=== PATIENT | female | born 1970 | race African-American/Black ===

== ENCOUNTER 2016-11-15 11:23 | Outpatient (CLI) ==
[2014-06-03 09:24] VITALS: BMI 32.6
[2016-11-15 11:48] LABS: BASOPHILS # (AUTO) 0.1 K/uL (0-0.2); BASOPHILS % (AUTO) 0.4 % (0.0-3.0); EOSINOPHILS # (AUTO) 0.2 K/ul (0.0-0.7); EOSINOPHILS % (AUTO) 1.2 % (0.0-7.0); HEMATOCRIT 51.4 % (37.0-47.0); HEMOGLOBIN 17.8 g/dl (12.0-16.0); IMMATURE GRANULOCYTE % (AUTO) 0.4 % (0.0-5.0); LYMPHOCYTES # (AUTO) 3.3 K/uL (0.60-3.4); LYMPHOCYTES % (AUTO) 23.1 (10.0-50.0); MEAN CORPUSCULAR HEMOGLOBIN 31.5 pg (27.0-31.0); MEAN CORPUSCULAR HGB CONC 34.6 (31.8-35.4); MONOCYTES # (AUTO) 1.1 K/uL (0.4-2.0); MONOCYTES % (AUTO) 7.6 (0-10); NEUTROPHILS # (AUTO) 9.6 K/ul (2.0-6.9); NEUTROPHILS % (AUTO) 67.3; PLATELET COUNT 378 10^3/uL (140-440); RED BLOOD COUNT 5.65 10^6/ul (4.20-5.40); WHITE BLOOD COUNT 14.26 K/ul (4.6-10.2)
[2016-11-15 12:27] LABS: ALBUMIN 3.9 g/dL (3.4-5.0); ALBUMIN/GLOBULIN RATIO 0.93; ANION GAP 13.5; BILIRUBIN,TOTAL 0.53 mg/dL (0.00-1.20); BUN/CREATININE RATIO 8.03; CALCIUM 9.7 mg/dL (8.2-10.2); CHOL/HDL RATIO 3.9 (4.5-5.5); CREATININE 1.12 mg/dL (0.60-1.30); POTASSIUM 4.5 mmol/L (3.5-5.10); TOTAL PROTEIN 8.1 g/dL (6.4-8.2)
--- NOTE | 2016-11-15 13:29 | DEXA ---
EXAM: Bone Densitometry DEXA HISTORY: Postmenopausal COMPARISON: None FINDINGS: DEXA scan of the lumbar spine was performed. Quality of the study is good. Bone mineral density is 1.819 grams per square centimeter. T-score is 05. Z-score is 3.8. DEXA scan right and left hip was performed. Quality of the study is good. Bone mineral density tot al knee is 1.292 grams per square centimeter. T-score is 2.3. Z-score is 0.9. Bone mineral density of the femoral neck mean is 1.279 with a T score of 1.7 and a Z score of 0.8. IMPRESSION: 1. Lumbar spine: Normal bone marrow density. 2. Right and left hip: Normal bone marrow density 3. Right and left femoral neck: Normal bone marrow density 4. 10 year risk for major osteoporotic fracture is 2.1% and for hip fracture is 0.0%. Reference Values according to World Health Organization criteria: T score greater than -1 is normal T score -1 to -2.5 is osteopenia T score less than -2.5 is osteoporosis.
== END 2016-11-15 11:24 | disposition home or self-care (01) ==
LOC: RAD 11:23
PROVIDERS: ATTEND Emergency Medicine
DX: E11.9 Type 2 diabetes mellitus without complications (principal); I10 Essential (primary) hypertension; E78.5 Hyperlipidemia, unspecified; Z78.0 Asymptomatic menopausal state; Z13.820 Encounter for screening for osteoporosis
CPT/HCPCS: 36415; 80053; 80061; 82306; 82607; 83036; 84443; 85025

== ENCOUNTER 2016-11-21 11:22 | Outpatient (CLI) ==
[2014-06-03 09:24] VITALS: BMI 32.6
--- NOTE | 2016-11-22 08:59 | MAMMO ---
EXAM: Digital screening mammogram HISTORY: Screening COMPARISON: 02/09/2015 FINDINGS: Digital MLO and CC views of the right and left breast were performed. There are scatter ed fibroglandular densities. There is no evidence for mass, asymmetry, distortion, or suspicious ca lcifications in either breast. IMPRESSION: 1. No evidence of malignancy in the right or left breast. 2. Annual screening mammogram is recommended in one year. BIRADS category 1, negative examination
== END 2016-11-21 11:23 | disposition home or self-care (01) ==
LOC: RAD 11:22
PROVIDERS: ATTEND Emergency Medicine
DX: Z12.31 Encounter for screening mammogram for malignant neoplasm of breast (principal)

== ENCOUNTER 2017-02-14 11:59 | Outpatient (CLI) ==
[2014-06-03 09:24] VITALS: BMI 32.6
[2017-02-14 12:55] LABS: ALBUMIN 3.8 g/dL (3.4-5.0); ALBUMIN/GLOBULIN RATIO 0.95; ANION GAP 16.1; BILIRUBIN,TOTAL 0.27 mg/dL (0.00-1.20); CALCIUM 9.4 mg/dL (8.2-10.2); CHOL/HDL RATIO 4.1 (4.5-5.5); POTASSIUM 4.1 mmol/L (3.5-5.10); TOTAL PROTEIN 7.8 g/dL (6.4-8.2)
== END 2017-02-14 12:00 | disposition home or self-care (01) ==
LOC: LAB 11:59
PROVIDERS: ATTEND Internal Medicine Endocrinology, Diabetes & Metabolism
DX: E78.5 Hyperlipidemia, unspecified (principal); E11.9 Type 2 diabetes mellitus without complications
CPT/HCPCS: 36415; 80053; 80061; 83036; 84439; 84443

== ENCOUNTER 2017-05-02 11:32 | Outpatient (CLI) ==
[2014-06-03 09:24] VITALS: BMI 32.6
--- NOTE | 2017-05-02 12:29 | DI ---
EXAM: Chest two view, frontal and lateral views. HISTORY: Chest pain. COMPARISON: 06/03/2014. FINDINGS: The heart size is normal. There is no pulmonary vascular congestion. Mild peribronchial thickening is stable from prior studies. Otherwise, the lungs are clear. No pleural effusion or p neumothorax is seen. No acute osseous abnormality identified. ACDF changes noted. Since the prior study, there has been no significant interval change. IMPRESSION: No acute cardiopulmonary process.
--- NOTE | 2017-05-02 12:32 | DI ---
EXAM: Thoracic spine radiographs. HISTORY: Back pain. COMPARISON: None available. TECHNIQUE: Frontal, lateral and swimmer's views. FINDINGS: The normal curvature and alignment are maintained. Vertebral body and intervertebral dis c heights are normal. No fracture or subluxation seen. Mild endplate osteophyte formation noted in the mid thoracic spine. There has been previous ACDF. Adjacent soft tissues are unremarkable. 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
== END 2017-05-02 11:33 | disposition home or self-care (01) ==
LOC: RAD 11:32
PROVIDERS: ATTEND Internal Medicine
DX: M54.9 Dorsalgia, unspecified (principal); R05 Cough; F17.210 Nicotine dependence, cigarettes, uncomplicated

== ENCOUNTER 2017-07-17 10:12 | Outpatient (CLI) ==
[2014-06-03 09:24] VITALS: BMI 32.6
[2017-07-17 10:28] LABS: BASOPHILS # (AUTO) 0.1 K/uL (0-0.2); BASOPHILS % (AUTO) 0.5 % (0.0-3.0); EOSINOPHILS # (AUTO) 0.4 K/ul (0.0-0.7); EOSINOPHILS % (AUTO) 2.7 % (0.0-7.0); HEMATOCRIT 49.3 % (37.0-47.0); HEMOGLOBIN 16.8 g/dl (12.0-16.0); IMMATURE GRANULOCYTE % (AUTO) 0.6 % (0.0-5.0); LYMPHOCYTES # (AUTO) 4.3 K/uL (0.60-3.4); LYMPHOCYTES % (AUTO) 31.1 (10.0-50.0); MEAN CORPUSCULAR HEMOGLOBIN 30.4 pg (27.0-31.0); MEAN CORPUSCULAR HGB CONC 34.1 (31.8-35.4); MEAN CORPUSCULAR VOLUME 89.3 fl (81.0-99.0); MONOCYTES # (AUTO) 1.3 K/uL (0.4-2.0); MONOCYTES % (AUTO) 9.6 (0-10); NEUTROPHILS # (AUTO) 7.7 K/ul (2.0-6.9); NEUTROPHILS % (AUTO) 55.5; PLATELET COUNT 400 10^3/uL (140-440); RED BLOOD COUNT 5.52 10^6/ul (4.20-5.40); WHITE BLOOD COUNT 13.89 K/ul (4.6-10.2)
[2017-07-17 11:04] LABS: ALBUMIN 3.8 g/dL (3.4-5.0); ANION GAP 14.1; BILIRUBIN,TOTAL 0.34 mg/dL (0.00-1.20); BUN/CREATININE RATIO 6.14; CHOL/HDL RATIO 3.2 (4.5-5.5); CREATININE 1.14 mg/dL (0.60-1.30); POTASSIUM 4.1 mmol/L (3.5-5.10); TOTAL PROTEIN 7.6 g/dL (6.4-8.2)
== END 2017-07-17 10:13 | disposition home or self-care (01) ==
LOC: LAB 10:12
PROVIDERS: ATTEND Internal Medicine
DX: E78.5 Hyperlipidemia, unspecified (principal); E11.9 Type 2 diabetes mellitus without complications; I10 Essential (primary) hypertension; J44.9 Chronic obstructive pulmonary disease, unspecified
CPT/HCPCS: 36415; 80053; 80061; 83036; 84443; 85025

== ENCOUNTER 2017-11-20 10:21 | Outpatient (CLI) ==
[2014-06-03 09:24] VITALS: BMI 32.6
== END 2017-11-20 10:22 | disposition home or self-care (01) ==
LOC: LAB 10:21
PROVIDERS: ATTEND Internal Medicine
DX: E78.5 Hyperlipidemia, unspecified (principal); E11.9 Type 2 diabetes mellitus without complications; E03.9 Hypothyroidism, unspecified; D75.1 Secondary polycythemia
CPT/HCPCS: 36415; 80053; 80061; 83036; 84439; 84443; 85025

== ENCOUNTER 2018-01-22 09:00 | Outpatient (CLI) ==
[2014-06-03 09:24] VITALS: BMI 32.6
== END 2018-01-22 09:01 | disposition home or self-care (01) ==
LOC: LAB 09:00
PROVIDERS: ATTEND Internal Medicine
DX: E03.9 Hypothyroidism, unspecified (principal)
CPT/HCPCS: 36415; 84439; 84443

== ENCOUNTER 2018-03-26 11:26 | Outpatient (CLI) ==
[2014-06-03 09:24] VITALS: BMI 32.6
== END 2018-03-26 11:27 | disposition home or self-care (01) ==
LOC: LAB 11:26
PROVIDERS: ATTEND Internal Medicine
DX: E03.9 Hypothyroidism, unspecified (principal); E78.5 Hyperlipidemia, unspecified; E11.9 Type 2 diabetes mellitus without complications
CPT/HCPCS: 36415; 80053; 80061; 83036; 84439; 84443; 85025

== ENCOUNTER 2018-04-02 09:18 | Outpatient (CLI) ==
[2014-06-03 09:24] VITALS: BMI 32.6
--- NOTE | 2018-04-05 09:02 | MAMMO ---
EXAM: Bilateral digital screening mammogram (2-D and 3-D) History: Screening Comparison: Bilateral mammogram 11/21/2016 Findings: MLO and CC views of bilateral breasts demonstrate scattered fibroglandular breast pattern. CAD was reviewed by the radiologist. Tomosynthesis was performed. There are no dominant masses, no suspicious microcalcifications and no architectural distortions. Impression: Stable negative mammogram. Recommend followup routine screening mammography in 1 year. BIRADS 1
== END 2018-04-02 09:19 | disposition home or self-care (01) ==
LOC: RAD 09:18
PROVIDERS: ATTEND Internal Medicine
DX: Z12.31 Encounter for screening mammogram for malignant neoplasm of breast (principal)
CPT/HCPCS: 77067

== ENCOUNTER 2018-07-23 10:23 | Outpatient (CLI) ==
[2014-06-03 09:24] VITALS: BMI 32.6
[2018-07-23 11:15] VITALS: BP 162/82; TEMP 98.5
[2018-07-23] MEDS ORDERED: LIDOCAINE HCL 1% SDV IM STA (11:16)
[2018-07-23] MEDS ORDERED: DECADRON 4 MG/ML SDV IM STA (11:16)
[2018-07-23] MEDS ORDERED: ROCEPHIN IM STA (11:16)
== END 2018-07-23 10:24 | disposition home or self-care (01) ==
LOC: OPMED 10:23
PROVIDERS: ATTEND Internal Medicine
DX: J01.90 Acute sinusitis, unspecified (principal); E78.5 Hyperlipidemia, unspecified; E11.9 Type 2 diabetes mellitus without complications; E03.9 Hypothyroidism, unspecified
CPT/HCPCS: 36415; 80053; 80061; 83036; 84439; 84443; 85025; 96372

== ENCOUNTER 2018-07-24 11:10 | Outpatient (CLI) ==
[2014-06-03 09:24] VITALS: BMI 32.6
[2018-07-24 11:22] VITALS: BP 147/75; TEMP 98.1
[2018-07-24] MEDS: ROCEPHIN IM STA (11:43)
[2018-07-24] MEDS: LIDOCAINE HCL 1% SDV IM STA (11:44)
[2018-07-24] MEDS: DECADRON 4 MG/ML SDV IM STA (11:45)
== END 2018-07-24 11:11 | disposition home or self-care (01) ==
LOC: OPMED 11:10
PROVIDERS: ATTEND Internal Medicine
DX: J01.90 Acute sinusitis, unspecified (principal); E11.9 Type 2 diabetes mellitus without complications; E78.5 Hyperlipidemia, unspecified; E03.9 Hypothyroidism, unspecified; I10 Essential (primary) hypertension
CPT/HCPCS: 96372

== ENCOUNTER 2018-11-20 10:00 | Outpatient (CLI) ==
[2014-06-03 09:24] VITALS: BMI 32.6
== END 2018-11-20 10:01 | disposition home or self-care (01) ==
LOC: LAB 10:00
PROVIDERS: ATTEND Internal Medicine
DX: E78.5 Hyperlipidemia, unspecified (principal); I10 Essential (primary) hypertension; E11.9 Type 2 diabetes mellitus without complications
CPT/HCPCS: 36415; 80053; 80061; 83036; 84439; 84443; 85025

== ENCOUNTER 2019-01-15 09:06 | Outpatient (CLI) ==
[2014-06-03 09:24] VITALS: BMI 32.6
--- NOTE | 2019-01-15 10:35 | US ---
EXAM: Thyroid ultrasound HISTORY: Goiter COMPARISON: None TECHNIQUE: Thyroid ultrasound was performed FINDINGS: Significantly limited examination due to extensive shadowing artifact that may be due to c alcifications. Thyroid is very difficult to visualize secondary to shadowing artifact likely from ca lcifications. Right thyroid measures 2.0 x 1.8 x 5.2 cm. Left thyroid measures 2.1 x 1.3 x 4.6 cm. Thyroid isthmus measures 0.5 cm. 1.2 x 1.0 x 1.4 cm hypoechoic nodule right superior thyroid. Ther e may be a 1.9 cm calcified nodule right mid thyroid. Extensive calcification shadowing artifact in t he bilateral thyroid and additional calcified nodules cannot be excluded. IMPRESSION: 1. Significantly limited examination due to extensive shadowing artifact that may be due to calcific ations. 2. There may be a 1.9 cm calcified nodule right mid thyroid. Recommend fine-needle aspiration. 3. Extensive calcification shadowing artifact in the bilateral thyroid and additional calcified nodu les cannot be excluded. 4. 1.4 cm nodule right superior thyroid. 5. Recommend follow-up ultrasound 6 months.
== END 2019-01-15 09:07 | disposition home or self-care (01) ==
LOC: RAD 09:06
PROVIDERS: ATTEND Internal Medicine
DX: E04.9 Nontoxic goiter, unspecified (principal); E03.9 Hypothyroidism, unspecified
CPT/HCPCS: 36415; 84439; 84443

== ENCOUNTER 2019-01-21 09:04 | Outpatient (CLI) ==
[2014-06-03 09:24] VITALS: BMI 32.6
--- NOTE | 2019-01-21 11:00 | CT ---
EXAM: CT sinuses with and without contrast HISTORY: Facial swelling, sinusitis COMPARISON: None TECHNIQUE: CT sinuses performed with and without intravenous contrast. Coronal and sagittal reforma tted images obtained. FINDINGS: Bilateral mastoid effusions, right greater than left. Temporal mandibular joints normally aligned. No fracture. Globes, retrobulbar structures unremarkable. The adenoids mildly prominent. Mucosal thickening left maxillary sinus. Right maxillary sinus clear. Sphenoid and sinuses clear. Frontal sinuses clear. Minimal mucosal thickening ethmoid air cells. No air-fluid levels paranasa l sinuses. Ostiomeatal units patent. Mild leftward deviation nasal septum. IMPRESSION: 1. Very mild sinusitis. No air-fluid levels. 2. Mildly prominent adenoids.
== END 2019-01-21 09:05 | disposition home or self-care (01) ==
LOC: RAD 09:04
PROVIDERS: ATTEND Internal Medicine
DX: R22.0 Localized swelling, mass and lump, head (principal); J32.9 Chronic sinusitis, unspecified
CPT/HCPCS: 36415; 82565

== ENCOUNTER 2019-02-23 14:54 | Emergency (ER) ==
[2019-02-23 15:02] VITALS: BP 182/85; TEMP 99.6; BMI 28.6
--- NOTE | 2019-02-23 15:22 | ED.PDOC ---
General ED Provider: Dr. MARSHA VELAZQUEZ Chief Complaint: Respiratory Complaint Stated Complaint: sinus pain chronic Time Seen by Physician: 15:00 Mode of Arrival: Walk-In Information Source: Patient Exam Limitations: No limitations Primary Care Provider: RENALDO TREJO Nursing and Triage Documentation Reviewed and Agree: Yes Does patient meet sepsis criteria?: No System Inflammatory Response Syndrome: Not Applicable Sepsis Protocol: For patient's 13 years and over: Temp is 96.8 and below OR 101 and greater Pulse >90 BPM Resp >20/minute Acutely Altered Mental Status Are patient's symptoms suggestive of a new infection, such as: -Pneumonia -Skin, Soft Tissue -Endocarditis -UTI -Bone, Joint Infection -Implantable Device -Acute Abdominal Infection -Wound Infection -Meningitis -Blood Stream Catheter Infection -Unknown EENT Complaint Exam - Nasal Complaint/Exam Onset/Duration: chronic Symptoms Are: Still present Initial Severity: Mild Current Severity: Mild Aggravating: Reports: None Alleviating: Reports: None Associated Signs and Symptoms: Reports: Nasal congestion Related History: Reports: Similar episode Nasal Surgical History: Reports: None Differential Diagnoses: Sinusitis Review of Systems - Review Of Systems Constitutional: Reports: No symptoms Eyes: Reports: No symptoms Ears, Nose, Mouth, Throat: Reports: Nose pain (sinus pain) Respiratory: Reports: No symptoms Cardiac: Reports: No symptoms GI: Reports: No symptoms : Reports: No symptoms Musculoskeletal: Reports: No symptoms Skin: Reports: No symptoms Neurological: Reports: No symptoms Endocrine: Reports: No symptoms Hematologic/Lymphatic: Reports: No symptoms All Other Systems: Reviewed and Negative Past Medical History - Past Medical History Previously Healthy: Yes Endocrine: Reports: None Cardiovascular: Reports: None Respiratory: Reports: None Hematological: Reports: None Gastrointestinal: Reports: None Genitourinary: Reports: None Neuro/Psych: Reports: None Musculoskeletal: Reports: None Cancer: Reports: None Last Menstrual Period: Last week - Surgical History General Surgical History: Reports: None - Family History Family History: Reports: None - Social History Smoking Status: Current every day smoker, Light tobacco smoker Hx Substance Use: No Alcohol Screening: None - Immunizations Tetanus Shot up to Date: No Physical Exam - Physical Exam Appearance: Well-appearing, No pain distress, Well-nourished Eyes: BORIS, EOMI, Conjunctiva clear ENT: Dry mucosa (sinus pain maxillary sinuses ) Respiratory: Airway patent, Breath sounds clear, Breath sounds equal, Respirations nonlabored Cardiovascular: RRR, Pulses normal, No rub, No murmur GI/: Soft, Nontender, No masses, Bowel sounds normal, No Organomegaly Musculoskeletal: Normal strength, ROM intact, No edema, No calf tenderness Skin: Warm, Dry Neurological: Sensation intact, Motor intact, Reflexes intact, Cranial nerves intact, Alert, Oriented Psychiatric: Affect appropriate, Mood appropriate Critical Care Note - Critical Care Note Total Time (mins): 0 Course - Course Vital Signs: Temp Pulse Resp BP Pulse Ox 02/23/19 14:55 99.6 F 96 H 20 182/85 H 94 L Departure - Departure Time of Disposition: 15:22 Disposition: HOME SELF-CARE Discharge Problem: Sinusitis Qualifiers: Sinusitis location: unspecified location Chronicity: chronic Qualified Code(s) : J32.9 - Chronic sinusitis, unspecified Instructions: Sinusitis (ED) Condition: Good Pt referred to PMD for follow-up: Yes IPMP verified?: No Additional Instructions: Please call your Family Physician as soon as possible to schedule a follow-up appointment. Allergies/Adverse Reactions: Allergies cephalexin monohydrate [From [employer]] Adverse Reaction (Verified 02/23/19 15:03) Home Medications: Ambulatory Orders Cyclobenzaprine HCl [Flexeril] 10 mg PO DIRECTED PRN 06/03/14 Felodipine [Plendil] 10 mg PO DAILY 06/03/14 Fenofibrate 54 mg PO DAILY 06/03/14 Glipizide [Glucotrol] 10 mg PO BID 06/03/14 Linagliptin [Tradjenta] 5 mg PO DAILY 06/03/14 Lisinopril 20 mg PO DAILY 06/03/14 Metformin HCl 500 mg PO TID 06/03/14 Simvastatin 60 mg PO DAILY 06/03/14 Omeprazole Magnesium [Prilosec Otc] 20 mg PO DAILY 09/29/14 Levothyroxine Sodium [Synthroid] 300 mcg PO DAILY LAB 02/23/19
== END 2019-02-23 15:40 | disposition home or self-care (01) ==
LOC: ED 14:54
DX: J32.9 Chronic sinusitis, unspecified (principal); F17.210 Nicotine dependence, cigarettes, uncomplicated
CPT/HCPCS: 99282

== ENCOUNTER 2019-03-11 11:55 | Outpatient (CLI) | END 2019-03-11 11:56 | disposition home or self-care (01) | LOC: LAB 11:55 | PROVIDERS: ATTEND Internal Medicine | DX: E03.9 Hypothyroidism, unspecified (principal); E11.9 Type 2 diabetes mellitus without complications; J44.9 Chronic obstructive pulmonary disease, unspecified | CPT/HCPCS: 36415; 80053; 80061; 83036; 84439; 84443; 85025 ==

== ENCOUNTER 2019-03-27 06:34 | Observation (INO) ==
[2019-03-27] MEDS ORDERED: DUONEB NEB STA (06:42)
--- NOTE | 2019-03-27 06:42 | ED.PDOC ---
General ED Provider: Dr. SIN HAMILTON Chief Complaint: Shortness of Air Time Seen by Physician: 06:30 Mode of Arrival: Ambulance Information Source: Patient Primary Care Provider: RENALDO TREJO Nursing and Triage Documentation Reviewed and Agree: Yes Does patient meet sepsis criteria?: Yes If yes, has appropriate treatment been initiated?: No System Inflammatory Response Syndrome: Resp >20/Minute Sepsis Protocol: For patient's 13 years and over: Temp is 96.8 and below OR 101 and greater Pulse >90 BPM Resp >20/minute Acutely Altered Mental Status Are patient's symptoms suggestive of a new infection, such as: -Pneumonia -Skin, Soft Tissue -Endocarditis -UTI -Bone, Joint Infection -Implantable Device -Acute Abdominal Infection -Wound Infection -Meningitis -Blood Stream Catheter Infection -Unknown Review of Systems - Review Of Systems Constitutional: Reports: No symptoms Eyes: Reports: No symptoms Ears, Nose, Mouth, Throat: Reports: No symptoms Respiratory: Reports: Cough (productive of ansari, white and brown sputum.), Short of air, Wheezing Cardiac: Reports: Chest pain GI: Reports: No symptoms : Reports: No symptoms Musculoskeletal: Reports: No symptoms Skin: Reports: No symptoms Neurological: Reports: No symptoms Endocrine: Reports: No symptoms Hematologic/Lymphatic: Reports: No symptoms All Other Systems: Reviewed and Negative Past Medical History - Past Medical History Previously Healthy: Yes Endocrine: Reports: Hypothyroid Cardiovascular: Reports: Hypertension Respiratory: Reports: COPD, Bronchitis Hematological: Reports: None Gastrointestinal: Reports: GERD Genitourinary: Reports: None Neuro/Psych: Reports: None Musculoskeletal: Reports: Arthritis Cancer: Reports: None Last Menstrual Period: couple weeks - Surgical History General Surgical History: Reports: (x 2 ) - Family History Family History: Reports: None - Social History Smoking Status: Current every day smoker, Light tobacco smoker Hx Substance Use: No Alcohol Screening: None - Immunizations Tetanus Shot up to Date: No Critical Care Note - Critical Care Note Total Time (mins): 30 Course - Course Vital Signs: Temp Pulse Resp BP Pulse Ox 03/27/19 06:34 97.6 F 106 H 30 H 96/57 L 93 L Departure - Departure Allergies/Adverse Reactions: Allergies cephalexin monohydrate [From [employer]] Adverse Reaction (Verified 02/23/19 15:03) Home Medications: Ambulatory Orders Cyclobenzaprine HCl [Flexeril] 10 mg PO DIRECTED PRN 06/03/14 Felodipine [Plendil] 10 mg PO DAILY 06/03/14 Fenofibrate 54 mg PO DAILY 06/03/14 Glipizide [Glucotrol] 10 mg PO BID 06/03/14 Linagliptin [Tradjenta] 5 mg PO DAILY 06/03/14 Lisinopril 20 mg PO DAILY 06/03/14 Metformin HCl 500 mg PO TID 06/03/14 Simvastatin 60 mg PO DAILY 06/03/14 Omeprazole Magnesium [Prilosec Otc] 20 mg PO DAILY 09/29/14 Amoxicillin 500 mg PO Q8HR #30 tablet 02/23/19 Levothyroxine Sodium [Synthroid] 300 mcg PO DAILY LAB 02/23/19 Prednisone 10 mg PO DAILYWM #7 tablet 02/23/19
[2019-03-27] MEDS ORDERED: ALBUTEROL 0.083% NEB NEB STA (07:30)
[2019-03-27] MEDS ORDERED: SODIUM CHLORIDE 500 ML IV STA (07:35)
--- NOTE | 2019-03-27 07:40 | ED.PDOC ---
General ED Provider: Dr. CHARISSA CONNORS Chief Complaint: Shortness of Air Stated Complaint: Short of breath; Sinus infection. States has been treated for sinus infection with 2 different antibiotics (Augumentin and Zithromax) and oral steroids on 2 different occasions. Not getting better. 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 Has been feeling very poorly, experiencing dyspnea, dizziness, abdominal bloating. Resp mildly labored Time Seen by Physician: 07:15 Mode of Arrival: Wheelchair Information Source: Patient Exam Limitations: No limitations Primary Care Provider: RENALDO TREJO Nursing and Triage Documentation Reviewed and Agree: Yes Does patient meet sepsis criteria?: No System Inflammatory Response Syndrome: Not Applicable Sepsis Protocol: For patient's 13 years and over: Temp is 96.8 and below OR 101 and greater Pulse >90 BPM Resp >20/minute Acutely Altered Mental Status Are patient's symptoms suggestive of a new infection, such as: -Pneumonia -Skin, Soft Tissue -Endocarditis -UTI -Bone, Joint Infection -Implantable Device -Acute Abdominal Infection -Wound Infection -Meningitis -Blood Stream Catheter Infection -Unknown Respiratory Complaint Exam - Respiratory Complaint/Exam Symptoms Are: Still present, Worse Timing: Intermittent Initial Severity: Mild Current Severity: Moderate Location: Nose, Throat, Chest Character: Reports: Non-productive cough, Bronchospastic cough Aggravating: Reports: Passive smoke exposure Alleviating: Reports: None Associated Signs and Symptoms: Reports: Dyspnea, Nasal congestion, Hoarseness, Decreased oral intake, Increased thirst Related History: Denies: Similar episode History of Healthcare-Acquired Pneumonia: No Related Surgical History: Reports: None Pulmonary Embolism Risk Factors: None Cardiac Risk Factors: Reports: None Pseudomonas Risk Factors: Reports: None Tuberculosis Risk Factors: Reports: None Status Asthmaticus Risk Factors: Reports: None Home Oxygen Use: No Recent Echo/LV Function: No Current Antibiotic Use: Yes Current Asthma Medication Use: No Respiratory Distress: Mild Inadequate Respiratory Effort: No Dysphagia Present: No Stridor Present: No JVD Present: No Retractions: Not Present Diminished Breath Sounds: Yes Prolonged Respiration: Inspiratory phase Sinus Tenderness: None Grunting Respirations: No Kussmaul Respirations: No Differential Diagnoses: Pneumonia, URI Review of Systems - Review Of Systems Constitutional: Reports: No symptoms Eyes: Reports: No symptoms Ears, Nose, Mouth, Throat: Reports: No symptoms Respiratory: Reports: Cough, Short of air Cardiac: Reports: No symptoms GI: Reports: No symptoms : Reports: No symptoms Musculoskeletal: Reports: No symptoms Skin: Reports: No symptoms Neurological: Reports: No symptoms Endocrine: Reports: No symptoms Hematologic/Lymphatic: Reports: No symptoms All Other Systems: Reviewed and Negative Past Medical History - Past Medical History Previously Healthy: Yes Endocrine: Reports: None Cardiovascular: Reports: None Respiratory: Reports: None Hematological: Reports: None Gastrointestinal: Reports: None Genitourinary: Reports: None Neuro/Psych: Reports: None Musculoskeletal: Reports: None Cancer: Reports: None Last Menstrual Period: couple weeks - Surgical History General Surgical History: Reports: None - Family History Family History: Reports: None - Social History Smoking Status: Current every day smoker, Light tobacco smoker Hx Substance Use: No Alcohol Screening: None - Immunizations Tetanus Shot up to Date: No Physical Exam - Physical Exam Appearance: Ill-appearing, Obese Ill-appearing: Moderate Pain Distress: Mild Eyes: BORIS, EOMI, Conjunctiva clear ENT: Erythema Neck: Supple Respiratory: Airway patent, Breath sounds diminished, Wheezes Cardiovascular: RRR, Pulses normal, No rub, No murmur GI/: Soft, Nontender, No masses, Bowel sounds normal, No Organomegaly Musculoskeletal: Normal strength, ROM intact, No edema, No calf tenderness Skin: Warm, Dry, Normal color Neurological: Sensation intact, Motor intact, Reflexes intact, Cranial nerves intact, Alert, Oriented Psychiatric: Affect appropriate, Mood appropriate Physician Notification - Case Discussed Physician Notified: Dr Trejo Time of Notification: 12:10 (Concurs with admit/observation) Admit To: Observation Critical Care Note - Critical Care Note Total Time (mins): 60 Course - Course Hematology/Chemistry: 03/27/19 07:55 03/27/19 07:55 Orders, Labs, Meds: Lab Review 03/27/19 03/27/19 03/27/19 07:45 07:45 07:55 WBC RBC Hgb Hct MCV MCH MCHC RDW Coeff of Thee Plt Count Immature Gran % (Auto) Neut % (Auto) Lymph % (Auto) Imperial % (Auto) Eos % (Auto) Baso % (Auto) Immature Gran # (Auto) Neut # (Auto) Lymph # (Auto) Imperial # (Auto) Eos # (Auto) Baso # (Auto) ESR D-Dimer (Manual) Puncture Site R brach O2 Saturation 92.0 L ABG pH 7.350 ABG pCO2 36.1 ABG pO2 67.0 L ABG HCO3 19.9 L ABG Total CO2 21 L ABG Base Excess -6 L Beck Test + O2 Delivery Device Oxygen Liter Flow FiO2 % 21.0 Sodium Potassium Chloride Carbon Dioxide Anion Gap BUN Creatinine Estimated GFR (MDRD) BUN/Creatinine Ratio Glucose Lactic Acid Calcium Total Bilirubin AST ALT Alkaline Phosphatase Total Protein Albumin Globulin Albumin/Globulin Ratio Procalcitonin Urine Color Yellow Urine Clarity Clear Urine pH 5.0 Ur Specific [place] <=1.005 Urine Protein 1+ Urine Glucose (UA) 2+ Urine Ketones Negative Urine Blood 1+ Urine Nitrite Negative Urine Bilirubin Negative Urine Urobilinogen 0.2 Ur Leukocyte Esterase Trace Urine Microscopic RBC 0-2 Urine Microscopic WBC 0-2 Ur Squamous Epith Cells 5-10 Urine Opiates Screen Negative Ur Oxycodone Screen Negative Urine Methadone Screen Negative Ur Propoxyphene Screen Negative Ur Barbiturates Screen Negative U Tricyclic Antidepress Negative Ur Phencyclidine Scrn Negative Ur Amphetamine Screen Negative U Methamphetamines Scrn Negative U Benzodiazepines Scrn Negative Urine Cocaine Screen Negative U Cannabinoids Screen Negative 03/27/19 03/27/19 03/27/19 07:55 07:55 07:55 WBC 22.07 H RBC 5.48 H Hgb 17.5 H Hct 51.5 H MCV 94.0 MCH 31.9 H MCHC 34.0 RDW Coeff of Thee 12.7 Plt Count 322 Immature Gran % (Auto) 1.1 Neut % (Auto) 86.0 Lymph % (Auto) 9.0 L [place] % (Auto) 3.0 Eos % (Auto) 0.5 Baso % (Auto) 0.4 Immature Gran # (Auto) 0.3 Neut # (Auto) 19.0 H Lymph # (Auto) 2.0 Imperial # (Auto) 0.7 Eos # (Auto) 0.1 Baso # (Auto) 0.1 ESR 5 D-Dimer (Manual) Puncture Site O2 Saturation ABG pH ABG pCO2 ABG pO2 ABG HCO3 ABG Total CO2 ABG Base Excess Beck Test O2 Delivery Device Oxygen Liter Flow FiO2 % Sodium 134.6 Potassium 4.28 Chloride 100.8 Carbon Dioxide 16.6 L Anion Gap 21.48 BUN 8.3 Creatinine 1.24 Estimated GFR (MDRD) 56.00 BUN/Creatinine Ratio 6.69 Glucose 465.7 H Lactic Acid Calcium 9.52 Total Bilirubin 0.41 AST 39.0 H ALT 47.4 H Alkaline Phosphatase 144.5 H Total Protein 7.43 Albumin 4.19 Globulin 3.24 Albumin/Globulin Ratio 1.29 Procalcitonin Urine Color Urine Clarity Urine pH Ur Specific [place] Urine Protein Urine Glucose (UA) Urine Ketones Urine Blood Urine Nitrite Urine Bilirubin Urine Urobilinogen Ur Leukocyte Esterase Urine Microscopic RBC Urine Microscopic WBC Ur Squamous Epith Cells Urine Opiates Screen Ur Oxycodone Screen Urine Methadone Screen Ur Propoxyphene Screen Ur Barbiturates Screen U Tricyclic Antidepress Ur Phencyclidine Scrn Ur Amphetamine Screen U Methamphetamines Scrn U Benzodiazepines Scrn Urine Cocaine Screen U Cannabinoids Screen 03/27/19 03/27/19 03/27/19 07:55 07:55 09:10 WBC RBC Hgb Hct MCV MCH MCHC RDW Coeff of Thee Plt Count Immature Gran % (Auto) Neut % (Auto) Lymph % (Auto) [place] % (Auto) Eos % (Auto) Baso % (Auto) Immature Gran # (Auto) Neut # (Auto) Lymph # (Auto) Imperial # (Auto) Eos # (Auto) Baso # (Auto) ESR D-Dimer (Manual) 464.02 Puncture Site O2 Saturation ABG pH ABG pCO2 ABG pO2 ABG HCO3 ABG Total CO2 ABG Base Excess Beck Test O2 Delivery Device Oxygen Liter Flow FiO2 % Sodium Potassium Chloride Carbon Dioxide Anion Gap BUN Creatinine Estimated GFR (MDRD) BUN/Creatinine Ratio Glucose Lactic Acid 3.10 H Calcium Total Bilirubin AST ALT Alkaline Phosphatase Total Protein Albumin Globulin Albumin/Globulin Ratio Procalcitonin < 0.05 Urine Color Urine Clarity Urine pH Ur Specific [place] Urine Protein Urine Glucose (UA) Urine Ketones Urine Blood Urine Nitrite Urine Bilirubin Urine Urobilinogen Ur Leukocyte Esterase Urine Microscopic RBC Urine Microscopic WBC Ur Squamous Epith Cells Urine Opiates Screen Ur Oxycodone Screen Urine Methadone Screen Ur Propoxyphene Screen Ur Barbiturates Screen U Tricyclic Antidepress Ur Phencyclidine Scrn Ur Amphetamine Screen U Methamphetamines Scrn U Benzodiazepines Scrn Urine Cocaine Screen U Cannabinoids Screen 03/27/19 10:20 WBC RBC Hgb Hct MCV MCH MCHC RDW Coeff of Thee Plt Count Immature Gran % (Auto) Neut % (Auto) Lymph % (Auto) Imperial % (Auto) Eos % (Auto) Baso % (Auto) Immature Gran # (Auto) Neut # (Auto) Lymph # (Auto) Imperial # (Auto) Eos # (Auto) Baso # (Auto) ESR D-Dimer (Manual) Puncture Site R rad O2 Saturation 98.0 ABG pH 7.335 L ABG pCO2 37.2 ABG pO2 113.0 H ABG HCO3 19.8 L ABG Total CO2 21 L ABG Base Excess -6 L Beck Test + O2 Delivery Device Nc Oxygen Liter Flow 2.00 FiO2 % Sodium Potassium Chloride Carbon Dioxide Anion Gap BUN Creatinine Estimated GFR (MDRD) BUN/Creatinine Ratio Glucose Lactic Acid Calcium Total Bilirubin AST ALT Alkaline Phosphatase Total Protein Albumin Globulin Albumin/Globulin Ratio Procalcitonin Urine Color Urine Clarity Urine pH Ur Specific [place] Urine Protein Urine Glucose (UA) Urine Ketones Urine Blood Urine Nitrite Urine Bilirubin Urine Urobilinogen Ur Leukocyte Esterase Urine Microscopic RBC Urine Microscopic WBC Ur Squamous Epith Cells Urine Opiates Screen Ur Oxycodone Screen Urine Methadone Screen Ur Propoxyphene Screen Ur Barbiturates Screen U Tricyclic Antidepress Ur Phencyclidine Scrn Ur Amphetamine Screen U Methamphetamines Scrn U Benzodiazepines Scrn Urine Cocaine Screen U Cannabinoids Screen Orders Category Date Time Status ABG DRAW REQUEST Stat CARDIO 03/27/19 07:29 Completed ABG DRAW REQUEST Timed CARDIO 03/27/19 09:15 Completed EKG-(ED ONLY) Stat CARDIO 03/27/19 07:27 Completed NEBULIZER TREATMENT Stat CARDIO 03/27/19 07:29 Completed NEBULIZER TREATMENT Stat CARDIO 03/27/19 07:30 Completed OXYGEN Routine CARDIO 03/27/19 08:11 Ordered BLOOD GLUCOSE MONITORING Q1HR CARE 03/27/19 09:09 Active BLOOD GLUCOSE MONITORING Q1HR CARE 03/27/19 09:33 Active NPO REMINDER: IMAGING ONCE CARE 03/27/19 09:04 Active ED IV/MEDIPORT/POWERPORT .ONCE EMERGENCY 03/27/19 06:42 Inactive IV [ED IV/MEDIPORT/POWERPORT] .ONCE EMERGENCY 03/27/19 07:34 Active ABG Stat LAB 03/27/19 07:55 Completed ABG Timed LAB 03/27/19 10:20 Completed BLOOD CULTURE (ED ONLY) Stat LAB 03/27/19 07:55 Received CBC W/ AUTO DIFF Stat LAB 03/27/19 07:55 Completed CMP [COMPREHENSIVE METABOLIC PANEL] Stat LAB 03/27/19 07:55 Completed D-DIMER Stat LAB 03/27/19 09:10 Completed ESR Stat LAB 03/27/19 07:55 Completed LACTIC ACID Stat LAB 03/27/19 07:55 Completed PROCALCITONIN Stat LAB 03/27/19 07:55 Completed UA [URINALYSIS C & S IF INDICATED] Stat LAB 03/27/19 07:45 Completed URINE DRUG SCREEN (RAPID FOR ED) [DRUG SCREEN, URINE, LAB 03/27/19 07:45 Completed RAPID] Stat 0.9 % Sodium Chloride [Saline Flush] MEDS 03/27/19 07:35 Active 1 syr IVF PRN PRN Albuterol Sulfate 0.083% Neb [Albuterol 0.083% Neb] MEDS 03/27/19 07:30 Discontinued 1 vial NEB ONCE STA Insulin Lispro [Humalog] MEDS 03/27/19 09:06 Discontinued 15 unit SUBCUT ONCE STA Insulin Regular, Human [Humulin R] MEDS 03/27/19 09:33 Discontinued 15 unit SUBCUT ONCE STA Sodium Chloride 0.9% [Sodium Chloride] 1,000 ml MEDS 03/27/19 08:53 Discontinued IV BOLUS Sodium Chloride 0.9% [Sodium Chloride] 500 ml MEDS 03/27/19 07:35 Discontinued IV BOLUS CHEST, 2 VIEWS PA & LAT Stat RADS 03/27/19 07:[address] ABDOMEN/PELVIS W CONTRAST Stat RADS 03/27/19 09:[address] CHEST PE PROTOCOL Stat RADS 03/27/19 09:[address] SINUSES W/O CONTRAST Stat RADS 03/27/19 08:11 Completed Medications Generic Name Dose Route Start Last Admin Trade Name Freq PRN Reason Stop Dose Admin Sodium Chloride 1 syr 03/27/19 07:35 03/27/19 08:16 Saline Flush IVF 1 syr PRN PRN Administration To flush IV Discontinued Medications Generic Name Dose Route Start Last Admin Trade Name Freq PRN Reason Stop Dose Admin Albuterol Sulfate 1 vial 03/27/19 07:30 03/27/19 07:56 Albuterol 0.083% Neb NEB 03/27/19 07:31 1 vial ONCE STA Administration Sodium Chloride 500 mls @ 500 mls/hr 03/27/19 07:35 03/27/19 08:11 Sodium Chloride IV 03/27/19 08:34 500 mls/hr BOLUS STA Administration Sodium Chloride 1,000 mls @ 1,000 mls/hr 03/27/19 08:53 03/27/19 09:28 Sodium Chloride IV 03/27/19 09:52 1,000 mls/hr BOLUS STA Administration Insulin Human Lispro 15 unit 03/27/19 09:06 03/27/19 09:51 Humalog SUBCUT 03/27/19 09:07 Not Given ONCE STA Insulin Human Regular 15 unit 03/27/19 09:33 03/27/19 09:42 Humulin R SUBCUT 03/27/19 09:34 15 unit ONCE STA Administration Vital Signs: Temp Pulse Resp BP Pulse Ox 03/27/19 06:34 97.6 F 106 H 30 H 96/57 L 93 L Departure - Departure Time of Disposition: 12:14 Disposition: PLACED OBSERVATION Discharge Problem: Acute bronchitis, Enteritis, Diabetes type 2, uncontrolled Condition: Fair Pt referred to PMD for follow-up: Yes (Emilia) IPMP verified?: No Allergies/Adverse Reactions: Allergies cephalexin monohydrate [From Keflex] Adverse Reaction (Verified 03/27/19 06:51) Home Medications: Ambulatory Orders Cyclobenzaprine HCl [Flexeril] 10 mg PO DIRECTED PRN 06/03/14 Felodipine [Plendil] 10 mg PO DAILY 06/03/14 Fenofibrate 54 mg PO DAILY 06/03/14 Glipizide [Glucotrol] 10 mg PO BID 06/03/14 Lisinopril 20 mg PO DAILY 06/03/14 Metformin HCl 500 mg PO TID 06/03/14 Simvastatin 60 mg PO DAILY 06/03/14 Amoxicillin 500 mg PO Q8HR #30 tablet 02/23/19 Levothyroxine Sodium [Synthroid] 300 mcg PO DAILY LAB 02/23/19 Disposition Discussed With: Patient, Family
--- NOTE | 2019-03-27 08:01 | DI ---
EXAM: Chest two views HISTORY: Cough COMPARISON: 05/02/2017 TECHNIQUE: Two views of the chest were performed FINDINGS: The lungs are clear. There is no pleural effusion or pneumothorax. The heart is normal i n size. The mediastinal contour is normal. There are no acute abnormalities of the bones. Cervical spinal fusion hardware. IMPRESSION: No acute cardiopulmonary process.
[2019-03-27] MEDS ORDERED: SODIUM CHLORIDE 1,000 ML IV STA (08:53)
[2019-03-27] MEDS ORDERED: HUMALOG SUBCUT STA (09:06)
--- NOTE | 2019-03-27 09:06 | CT ---
EXAM: CT sinuses without contrast HISTORY: Infection on antibiotics COMPARISON: 01/21/2019 TECHNIQUE: CT sinuses performed without intravenous contrast. Coronal and sagittal reformatted imag es obtained. FINDINGS: Right mastoid effusion. Left mastoid air cells clear. Temporal mandibular joints normall y aligned. No fracture. Periapical lucency of a left maxillary tooth. Multiple missing teeth. Den isela caries. The. The globes and retrobulbar structures unremarkable. Very mild mucosal thickening left maxillary sinus. Right maxillary sinus clear. Sphenoid sinuses clear. Ethmoid air cells clear . Frontal sinuses clear. No air-fluid levels in the paranasal sinuses. Mild mucoperiosteal thicken ing of the left ostiomeatal unit. Mild leftward deviation nasal septum. IMPRESSION: Very mild left maxillary sinusitis. No air-fluid levels.
[2019-03-27] MEDS ORDERED: HUMULIN R SUBCUT STA (09:33)
--- NOTE | 2019-03-27 10:51 | CT ---
EXAM: CT abdomen pelvis with contrast HISTORY: Bloating, discomfort, elevated liver enzymes COMPARISON: None TECHNIQUE: CT abdomen pelvis performed with intravenous contrast. Coronal and sagittal reformatted images obtained. FINDINGS: Please refer to separate port CT chest regarding findings in the lower chest. No free air . No acute abnormalities of the bones. Sclerosis centered about the L3-L4 endplate is likely degene rative. Degenerative change in the spine. Sclerosis about L3-L4 endplates is likely degenerative. Liver is enlarged. Gallbladder unremarkable. Pancreas unremarkable. Spleen unremarkable. Adrenals unremarkable. Kidneys unremarkable. Aorta normal in caliber. Moderate atherosclerosis. No lympha denopathy or ascites. Uterus unremarkable. Bladder unremarkable. Stomach unremarkable. No dilated loops small bowel. Scattered fluid-filled loops small bowel with scattered fluid levels and fluid s een to the terminal ileum, may represent mild enteritis. Appendix appears normal. Increased submuco darleen fat deposition in the colon and terminal ileum IMPRESSION: 1. Possible mild enteritis. Recommend clinical correlation. 2. Hepatomegaly. 3. Atherosclerosis. 4. Increased submucosal fat deposition in the colon and terminal ileum, a finding that can be seen i n sequela of remote infection or inflammation.
--- NOTE | 2019-03-27 10:54 | CT ---
EXAM: CTA CHEST (PE PROTOCOL) HISTORY: Shortness of breath and chest discomfort TECHNIQUE: CTA chest with intravenous contrast. Multiplanar images were provided with 3-D reconstru ctions. 100 ml of Visipaque. FINDINGS: No comparison. No pulmonary arterial filling defect. Thoracic aorta is within normal limits. Normal heart size. N o pericardial effusion. The lungs reveal no consolidated pneumonia or vascular congestion. There is no pneumothorax or pleur al fluid. Bones are within normal limits. IMPRESSION: 1. No pulmonary arterial thromboembolism. 2. Lungs are clear.
[2019-03-27] MEDS ORDERED: ROCEPHIN 1 GM VIAL 1 GM in SODIUM CHLORIDE 50 ML IV STA (12:50)
[2019-03-27] MEDS ORDERED: ROCEPHIN 1 GM VIAL ONE (12:56)
[2019-03-27 14:00] VITALS: BMI 28.1
[2019-03-27] MEDS: SODIUM CHLORIDE 0.9%-KCL 20 MEQ 1,000 ML IV SCH (14:06)
[2019-03-27] MEDS: LOVENOX SUBCUT SCH (14:07)
[2019-03-27] MEDS: DUONEB NEB SCH ×2 (14:18→20:45)
[2019-03-27] MEDS: DECADRON 4 MG/ML SDV IM SCH (15:48)
[2019-03-27] MEDS: NICODERM 21 MG TD SCH (15:49)
[2019-03-27] MEDS ORDERED: FLEXERIL PO PRN ×2 (15:49→16:05)
[2019-03-27] MEDS: GLUCOTROL PO SCH (17:00)
[2019-03-27] MEDS: HUMULIN R SUBCUT PRN ×2 (17:01→20:44)
[2019-03-27] MEDS ORDERED: GLUCOPHAGE PO SCH (17:30)
[2019-03-27] MEDS: DOXYCYCLINE HYCLATE PO SCH (20:44)
[2019-03-27] MEDS ORDERED: NON-FORMULARY MEDICATION (Glipizide [Glucotrol] 10 MG) PO SCH (21:00)
[2019-03-27] MEDS ORDERED: NON-FORMULARY MEDICATION (Metformin Hcl [Metformin Hcl] 500 MG) PO SCH (21:00)
[2019-03-28] MEDS: SODIUM CHLORIDE 0.9%-KCL 20 MEQ 1,000 ML IV SCH (02:50)
[2019-03-28 02:54] VITALS: TEMP 98.1
[2019-03-28] MEDS: DUONEB NEB SCH ×2 (04:38→10:14)
[2019-03-28 05:35] VITALS: BP 139/73
[2019-03-28] MEDS ORDERED: LEVOTHYROXINE SODIUM 300 MCG PO SCH (06:00)
[2019-03-28] MEDS ORDERED: SYNTHROID PO SCH ×2 (06:00)
[2019-03-28] MEDS: GLUCOTROL PO SCH (06:19)
[2019-03-28] MEDS: HUMULIN R SUBCUT PRN (06:20)
--- NOTE | 2019-03-28 08:38 | PCM.PROG ---
Attending Provider: ATTENDING PROVIDER: Dr. RENALDO TREJO This patient is seen with Deepti Meredith, Nurse Practitioner. DATE OF SERVICE: 03/28/19 SUBJECTIVE: This 48 year old BLACK/ F was hospitalized 03/27/19. The patient is resting comfortably. No fever. The patient states that she is ready to go home and get back to work. The patient is an everyday smoker. She has chronic sinusitis and bronchitis. States pleuritic pain and shortness of breath has improved with NEBS and steroids. REVIEW OF SYSTEMS: CONSTITUTIONAL: No night sweats. No fatigue, malaise, lethargy. No fever or chills. HEENT: Eyes: No visual changes. No eye pain. No eye discharge. ENT: No runny nose. No epistaxis. No sinus pain. No odynophagia. No congestion. RESPIRATORY: Cough, no congestion. No hemoptysis. No shortness of breath. CARDIOVASCULAR: No angina symptoms. No CHF symptoms. No atypical chest pain for CAD. No palpitations. No orthopnea.. GASTROINTESTINAL: No abdominal pain. No nausea or vomiting. No diarrhea or constipation. No hematemesis. No hematochezia. GENITOURINARY: No urgency. No frequency. No dysuria. No hematuria. No obstructive symptoms. No discharge. No pain. No significant abnormal bleeding. MUSCULOSKELETAL: No musculoskeletal pain; no joint swelling. NEUROLOGICAL: Awake, alert, oriented to time, place and person. No headache. No neck pain. No syncope. No seizures. No dizziness. PSYCHIATRIC: Not anxious. No depression. No suicidal thoughts. No homicidal thoughts. SKIN: No rash. No lesions. No wounds. ENDOCRINE: No unexplained weight loss. No weight gain. HEMATOLOGIC/LYMPHATIC: No anemia. No purpura. No petechiae. No prolonged or excessive bleeding. No palpable lymph nodes. PHYSICAL EXAMINATION: GENERAL: The patient is awake, alert and oriented, sitting in bed in no distress. VITAL SIGNS: Temperature 98.1 F, Pulse 78, Respiratory Rate 24, BP 139/73, Pulse Ox 96% HEENT: Head normocephalic, atraumatic. Eyes: Extraocular muscles are intact. Pupils are equal, round and reactive to light and accommodation. Ears: No lesions. Nose appeared normal. Throat: No exudate or erythema. NECK: Supple. No JVD, no carotid bruit. No lymphadenopathy or thyromegaly. LUNGS: Diminished breath sounds. Bilateral Rhonchi. Clear to auscultation. Percussion note normal. Chest symmetrical. HEART: S1, S2, no S3. No murmurs. No cyanosis or clubbing. No ascites. Pulses: Dorsalis pedis and posterior tibial pulses +1 to +2 both sides. ABDOMEN: Soft. Non-tender. Bowel sounds active. No CVA tenderness. No mass felt. EXTREMITIES: No edema. Full range of motion of all extremities, equal. NEUROLOGIC: No focal deficit. Cranial nerves II through XII are grossly intact. No headache, no double vision or headache. SKIN: Not dry. Intact. Turgor-normal. LYMPHATIC: No palpable lymph nodes/no lymphedema. MUSCULOSKELETAL: Normal joints with no swelling. Muscle tone is normal. LAB REVIEW: 03/28/19 04:30 03/28/19 04:30 03/28/19 04:30: Sodium 137.0, Potassium 4.51, Chloride 103.6, Carbon Dioxide 22.9, Anion Gap 15.01, BUN 17.3 H, Creatinine 1.04, Estimated GFR (MDRD) 68.00, BUN/Creatinine Ratio 16.63, Glucose 276.5 H D, Calcium 9.01, Total Bilirubin 0.26, AST 26.8, ALT 40.3 H, Alkaline Phosphatase 111.8 D, Total Protein 6.75, Albumin 3.85, Globulin 2.90, Albumin/Globulin Ratio 1.32 03/28/19 04:30: WBC 23.97 H, RBC 4.73, Hgb 14.8, Hct 45.1 D, MCV 95.3, MCH 31.3 H, MCHC 32.8, RDW Coeff of Thee 12.7, Plt Count 301, Immature Gran % (Auto) 0.6, Neut % (Auto) 86.5, Lymph % (Auto) 7.4 L, Kay % (Auto) 5.3, Eos % (Auto) 0.0, Baso % (Auto) 0.2, Immature Gran # (Auto) 0.2, Neut # (Auto) 20.7 H, Lymph # (Auto) 1.8, Kay # (Auto) 1.3, Eos # (Auto) 0.0, Baso # (Auto) 0.1 03/28/19 02:38: Total Creatine Kinase 102.5, Troponin I < 0.012 03/27/19 18:21: Total Creatine Kinase 59.4, Troponin I 0.017 03/27/19 10:20: Puncture Site R rad, O2 Saturation 98.0, ABG pH 7.335 L, ABG pCO2 37.2, ABG pO2 113.0 H, ABG HCO3 19.8 L, ABG Total CO2 21 L, ABG Base Excess -6 L, Beck Test +, O2 Delivery Device Nc, Oxygen Liter Flow 2.00 03/27/19 09:10: TSH 1.810 03/27/19 09:10: Free T4 2.22 H 03/27/19 09:10: D-Dimer (Manual) 464.02 03/27/19 07:55: Lactic Acid 3.10 H 03/27/19 07:55: Procalcitonin < 0.05 03/27/19 07:55: ESR 5 03/27/19 07:55: Sodium 134.6, Potassium 4.28, Chloride 100.8, Carbon Dioxide 16.6 L, Anion Gap 21.48, BUN 8.3, Creatinine 1.24, Estimated GFR (MDRD) 56.00, BUN/Creatinine Ratio 6.69, Glucose 465.7 H, Calcium 9.52, Total Bilirubin 0.41, AST 39.0 H, ALT 47.4 H, Alkaline Phosphatase 144.5 H, Total Protein 7.43, Albumin 4.19, Globulin 3.24, Albumin/Globulin Ratio 1.29 03/27/19 07:55: WBC 22.07 H, RBC 5.48 H, Hgb 17.5 H, Hct 51.5 H, MCV 94.0, MCH 31.9 H, MCHC 34.0, RDW Coeff of Thee 12.7, Plt Count 322, Immature Gran % (Auto) 1.1, Neut % (Auto) 86.0, Lymph % (Auto) 9.0 L, Kay % (Auto) 3.0, Eos % (Auto) 0.5, Baso % (Auto) 0.4, Immature Gran # (Auto) 0.3, Neut # (Auto) 19.0 H, Lymph # (Auto) 2.0, Kay # (Auto) 0.7, Eos # (Auto) 0.1, Baso # (Auto) 0.1 03/27/19 07:55: Puncture Site R brach, O2 Saturation 92.0 L, ABG pH 7.350, ABG pCO2 36.1, ABG pO2 67.0 L, ABG HCO3 19.9 L, ABG Total CO2 21 L, ABG Base Excess -6 L, Beck Test +, FiO2 % 21.0 03/27/19 07:45: Urine Color Yellow, Urine Clarity Clear, Urine pH 5.0, Ur Specific [place] <=1.005, Urine Protein 1+, Urine Glucose (UA) 2+, Urine Ketones Negative, Urine Blood 1+, Urine Nitrite Negative, Urine Bilirubin Negative, Urine Urobilinogen 0.2, Ur Leukocyte Esterase Trace, Urine Microscopic RBC 0-2, Urine Microscopic WBC 0-2, Ur Squamous Epith Cells 5-10 03/27/19 07:45: Urine Opiates Screen Negative, Ur Oxycodone Screen Negative, Urine Methadone Screen Negative, Ur Propoxyphene Screen Negative, Ur Barbiturates Screen Negative, U Tricyclic Antidepress Negative, Ur Phencyclidine Scrn Negative, Ur Amphetamine Screen Negative, U Methamphetamines Scrn Negative, U Benzodiazepines Scrn Negative, Urine Cocaine Screen Negative, U Cannabinoids Screen Negative ASSESSMENT: Please see below. 1. Acute bronchitis 2. Chronic bronchitis 3. Uncontrolled diabetes mellitus 4. Smoker PLAN: 1. Discharge home this afternoon 2. Doxycycline 100mg twice a day for 7 days 3. Prednisone 10mg twice a day for 5 days 4. The patient would greatly benefit from nebulizer machine given acute bronchitis, chronic lung disease and underlined asthma. Plan and coordination of the patient's care discussed in the presence of Fishing Rod Mechanic and nurse. SCRIBED BY: CRISTINA TOUSSAINT Group Sales Representative scribed while in presence of service performed by Dr. Trejo/Deepti Meredith, GRISELDA on 03/28/19 ([id number])
[2019-03-28] MEDS: DOXYCYCLINE HYCLATE PO SCH (08:57)
--- NOTE | 2019-03-28 08:57 | CM.DICTOOL ---
ADMISSION: 03/27/19 12:29 DISCHARGE: 03/28/19 DATE OF SERVICE: 03/28/19 FINAL DIAGNOSIS BRONCHITIS, ACUTE ON CHRONIC ENTERITIS, RESOLVED DIABETES MELLITUS TYPE II, UNCONTROLLED LUNG DISEASE, CHRONIC SINUSITIS, CHRONIC HYPERTENSION DYSLIPIDEMIA HYPOTHYROID ASTHMA SMOKER NONCOMPLIANT WITH DIET, LIFESTYLE MORBID OBESITY LAST VITALS Temp Pulse Resp BP Pulse Ox 98.1 F 78 24 139/73 96 03/28/19 05:34 03/28/19 05:34 03/28/19 05:34 03/28/19 05:34 03/28/19 05:34 TAKE THESE MEDICATIONS AT HOME Albuterol/Ipratropium (Duoneb) 1 vial NEB RTQID [facility] Last Admin: 03/28/19 04:38 Dose: 1 vial Cyclobenzaprine HCl (Flexeril) 10 mg PO BEDTIME PRN PRN Reason: MUSCLE SPASMS Doxycycline Hyclate (Doxycycline Hyclate) 100 mg PO Q12HR [facility] Stop: 03/30/19 20:59 Last Admin: 03/27/19 20:44 Dose: 100 mg Felodipine (Plendil) 10 mg PO DAILY DANK Fenofibrate (Triglide) 160 mg PO DAILY DANK Glipizide (Glucotrol) 10 mg PO BIDAC [facility] Last Admin: 03/28/19 06:19 Dose: 10 mg Losartan/HCTZ 100/12.5 mg PO DAILY DANK Levothyroxine Sodium (Synthroid) 300 mcg PO DAILY LAB [facility] Last Admin: 03/28/19 06:19 Dose: 300 mcg Levothyroxine Sodium (Synthroid) 25 mcg PO DAILY LAB [facility] Last Admin: 03/28/19 06:19 Dose: 25 mcg Metformin HCl (Glucophage) 500 mg PO TIDWM [facility] Last Admin: 03/27/19 17:08 Dose: Not Given Alogliptin Benzoate (Nesina) 12.5 mg PO DAILY [facility] Simvastatin (Zocor) 40 mg PO DAILY [facility] ALLERGIES cephalexin monohydrate [From [facility]] Adverse Reaction (Verified 03/27/19 06:51) DISCONTINUED MEDICATIONS NONE NEW PRESCRIPTIONS: HOME NEBULIZER MACHINE DUONEBS 1 VIAL NEB TX Q6H SCHED # 1/MONTH SUPP / NR DOXYCYCLINE 100MG BID X7 DAYS #14 / NR PREDNISONE 10MG BID X5 DAYS # 10 / NR PHENERGAN WITH CODEINE SYRUP 1TSP Q6H PRN #6 OZ / NR SMOKING: SMOKER SMOKING CESSATION DISCUSSED DISEASE SPECIFIC EDUCATION: SMOKING CESSATION USE OF NEBULIZER CHRONIC BRONCHITIS UNCONTROLLED DM TYPE II LAB REVIEW: 03/28/19 04:30 03/28/19 04:30 03/28/19 04:30: Sodium 137.0, Potassium 4.51, Chloride 103.6, Carbon Dioxide 22.9, Anion Gap 15.01, BUN 17.3 H, Creatinine 1.04, Estimated GFR (MDRD) 68.00, BUN/Creatinine Ratio 16.63, Glucose 276.5 H D, Calcium 9.01, Total Bilirubin 0.26, AST 26.8, ALT 40.3 H, Alkaline Phosphatase 111.8 D, Total Protein 6.75, Albumin 3.85, Globulin 2.90, Albumin/Globulin Ratio 1.32 03/28/19 04:30: WBC 23.97 H, RBC 4.73, Hgb 14.8, Hct 45.1 D, MCV 95.3, MCH 31.3 H, MCHC 32.8, RDW Coeff of Thee 12.7, Plt Count 301, Immature Gran % (Auto) 0.6, Neut % (Auto) 86.5, Lymph % (Auto) 7.4 L, [place] % (Auto) 5.3, Eos % (Auto) 0.0, Baso % (Auto) 0.2, Immature Gran # (Auto) 0.2, Neut # (Auto) 20.7 H, Lymph # (Auto) 1.8, [place] # (Auto) 1.3, Eos # (Auto) 0.0, Baso # (Auto) 0.1 03/28/19 02:38: Total Creatine Kinase 102.5, Troponin I < 0.012 03/27/19 18:21: Total Creatine Kinase 59.4, Troponin I 0.017 03/27/19 10:20: Puncture Site R rad, O2 Saturation 98.0, ABG pH 7.335 L, ABG pCO2 37.2, ABG pO2 113.0 H, ABG HCO3 19.8 L, ABG Total CO2 21 L, ABG Base Excess -6 L, Beck Test +, O2 Delivery Device Nc, Oxygen Liter Flow 2.00 03/27/19 09:10: TSH 1.810 03/27/19 09:10: Free T4 2.22 H 03/27/19 09:10: D-Dimer (Manual) 464.02 03/27/19 07:55: Lactic Acid 3.10 H 03/27/19 07:55: Procalcitonin < 0.05 03/27/19 07:55: ESR 5 03/27/19 07:55: Sodium 134.6, Potassium 4.28, Chloride 100.8, Carbon Dioxide 16.6 L, Anion Gap 21.48, BUN 8.3, Creatinine 1.24, Estimated GFR (MDRD) 56.00, BUN/Creatinine Ratio 6.69, Glucose 465.7 H, Calcium 9.52, Total Bilirubin 0.41, AST 39.0 H, ALT 47.4 H, Alkaline Phosphatase 144.5 H, Total Protein 7.43, Albumin 4.19, Globulin 3.24, Albumin/Globulin Ratio 1.29 03/27/19 07:45: Urine Color Yellow, Urine Clarity Clear, Urine pH 5.0, Ur Specific [place] <=1.005, Urine Protein 1+, Urine Glucose (UA) 2+, Urine Ketones Negative, Urine Blood 1+, Urine Nitrite Negative, Urine Bilirubin Negative, Urine Urobilinogen 0.2, Ur Leukocyte Esterase Trace, Urine Microscopic RBC 0-2, Urine Microscopic WBC 0-2, Ur Squamous Epith Cells 5-10 03/27/19 07:45: Urine Opiates Screen Negative, Ur Oxycodone Screen Negative, Urine Methadone Screen Negative, Ur Propoxyphene Screen Negative, Ur Barbiturates Screen Negative, U Tricyclic Antidepress Negative, Ur Phencyclidine Scrn Negative, Ur Amphetamine Screen Negative, U Methamphetamines Scrn Negative, U Benzodiazepines Scrn Negative, Urine Cocaine Screen Negative, U Cannabinoids Screen Negative PLAN: DISCHARGE HOME TODAY, 03/28/19. DIET: DIABETIC ADA 1800 PIPPA DIET ACTIVITY: INDEPENDENT WITH ADLS FOLLOW-UP: DR. TREJO THURSDAY APRIL 04, 2019 @ 9:30AM CODE STATUS: FULL CODE MRS. CASTANEDA IS A&OX3. SHE STATES SHE IS FEELING BETTER, READY TO GO HOME AND GET BACK TO WORK. PT IS AGREEABLE TO PLAN TO DISCHARGE HOME TODAY. I FEEL SHE WOULD GREATLY BENEFIT FROM A HOME NEBULIZER WITH DUONEB TREATMENTS SCHEDULED EVERY 6 HOURS GIVEN HER CHRONIC LUNG DISEASE, ACUTE ON CHRONIC BRONCHITIS, AND UNDERLYING ASTHMA. SHE HAS A DRY COUGH, IS A CURRENT EVERY DAY SMOKER - HAVE DISCUSSED SMOKING CESSATION IN DETAIL. BREATH SOUNDS ARE DECREASED WITH BILATERAL RONCHI TO BASES. NO NOTED SOA AT THIS TIME. PLEURITIC PAIN IS IMPROVING WITH NEBULIZER TREATMENTS AND STEROIDS. BOWEL SOUNDS ACTIVE, NUTRITION AND HYDRATION STATUS ARE ADEQUATE. PT IS INDEPENTENT WITH ALL ADLS AND IS CONTINENT OF BOWEL AND BLADDER. SHE HAS NOT EXPERIENCED ANY N/V/D THROUGH THE NIGHT. COUNSELLED ON FOLLOWING DIABETIC DIET. RENALDO PARDO, ENTRY LEVEL FINANCIAL ANALYST
[2019-03-28] MEDS: DECADRON 4 MG/ML SDV IM SCH (08:58)
[2019-03-28] MEDS: LOVENOX SUBCUT SCH (08:59)
[2019-03-28] MEDS: NICODERM 21 MG TD SCH (08:59)
[2019-03-28] MEDS ORDERED: HYDROCHLOROTHIAZIDE PO SCH (09:00)
[2019-03-28] MEDS ORDERED: ALOGLIPTIN BENZOATE 12.5 MG PO SCH (09:00)
[2019-03-28] MEDS ORDERED: COZAAR PO SCH (09:00)
[2019-03-28] MEDS ORDERED: ROCEPHIN 1 GM VIAL 1 GM in SODIUM CHLORIDE 50 ML IV SCH (09:00)
[2019-03-28] MEDS ORDERED: TRIGLIDE PO SCH ×2 (09:00)
[2019-03-28] MEDS ORDERED: PLENDIL PO SCH (09:00)
[2019-03-28] MEDS ORDERED: ZOCOR PO SCH (09:00)
[2019-03-28] MEDS ORDERED: NON-FORMULARY MEDICATION (Losartan/Hydrochlorothiazide [Losartan-Hctz 100-12.5 Mg Tab] 1 T PO SCH (09:00)
[2019-03-28] MEDS ORDERED: PROAIR HFA IH PRN (09:06)
--- NOTE | 2019-03-31 09:20 | PN ---
DATE OF SERVICE: 03/28/19 SUBJECTIVE: 48 year old black female was seen and examined with Nurse Practitioner. She was hospitalized on 03/27/19 with acute bronchitis under observation. The patient's condition is stable. She is up and about breathing better. She is a heavy smoker. Strongly advised to quit smoking. She is noncompliant of lifestyle, diet and activity and even medications. She is a hard working woman. She will be discharged home on steroids and antibiotics. TIME SPENT: More than 30 minutes. Plan and coordination of the patient's care discussed in the presence of nurse. FERNANDO
--- NOTE | 2019-04-04 14:51 | HP ---
DATE OF SERVICE: 03/27/19 REASON FOR HOSPITALIZATION/HISTORY OF PRESENT ILLNESS: This is an female who presented to the emergency room complaining of chest discomfort, cough and shortness of breath. She is a long time heavy smoker. PAST MEDICAL HISTORY: Hypothyroidism Smoker Hypertension Diabetes mellitus type 2 Anxiety Polyarthritis Noncompliance with medications, diet, lifestyle and followup. PAST SURGICAL HISTORY: 2 C-sections Knee surgery Neck surgery REVIEW OF SYSTEMS: CONSTITUTIONAL: No night sweats. No fatigue, malaise, lethargy. No fever or chills. HEENT: Eyes: No visual changes. No eye pain. No eye discharge. ENT: No runny nose. No epistaxis. No sinus pain. No sore throat. No odynophagia. No ear pain. No congestion. RESPIRATORY: Cough, no congestion. No hemoptysis. Shortness of breath. Wheezing. CARDIOVASCULAR: No angina symptoms. No CHF symptoms. No atypical chest pain for CAD. No palpitations. No PND. No orthopnea. GASTROINTESTINAL: No abdominal pain. No nausea or vomiting. No diarrhea or constipation. No hematemesis. No hematochezia. GENITOURINARY: No urgency. No frequency. No dysuria. No hematuria. No obstructive symptoms. No discharge. No pain. No significant abnormal bleeding. MUSCULOSKELETAL: No musculoskeletal pain. No joint swelling. No arthritis. NEUROLOGICAL: No headache. No neck pain. No syncope. No seizures. No dizziness. PSYCHIATRIC: Not anxious. No depression. No suicidal thoughts. No homicidal thoughts. SKIN: No rash. No lesions. No wounds. ENDOCRINE: No unexplained weight loss. No weight gain. HEMATOLOGIC/LYMPHATIC: No anemia. No purpura. No petechiae. No prolonged or excessive bleeding. No palpable lymph nodes. PERSONAL/FAMILY/SOCIAL HISTORY: She is smoker. She lives at home with her adult children as she works at the [employer]. She is not . MEDICATIONS: Fenofibrate 160mg PO daily Flexeril 10mg PO daily PRN Metformin HCL 500mg PO three times a day Glucotrol 10mg PO twice a day Simvastatin 40mg PO daily Plendil 10mg PO daily Synthroid 300mcg PO QDAC Losartan HCTZ 100-12.5mg one tablet PO daily Levothyroxine 25mcg PO daily Nesina 12.5mg PO daily ALLERGIES: Cephalexin monohydrate PHYSICAL EXAMINATION: GENERAL: The patient is , lying/sitting in bed in no distress. HEENT: Head normocephalic, atraumatic. Eyes: Extraocular muscles are intact. Pupils are equal, round and reactive to light and accommodation. Ears: No lesions. Nose appeared normal. Throat: No exudate or erythema. NECK: Supple. No JVD, no carotid bruit. No lymphadenopathy or thyromegaly. LUNGS: Diminished breath sounds. Inspiratory and expiratory wheezing. Clear to auscultation. Percussion note normal. Chest symmetrical. HEART: S1, S2, no S3. No murmurs. No cyanosis or clubbing. No ascites. Pulses: Dorsalis pedis and posterior tibial pulses +1 to +2 bilaterally. ABDOMEN: Soft. Nontender. Bowel sounds active. No CVA tenderness. No mass felt. EXTREMITIES: No edema. Full range of motion of all extremities, equal. NEUROLOGIC: No focal deficit. Cranial nerves II through XII are grossly intact. No headache, no double vision or headache. SKIN: Not dry. Intact. Turgor - normal. LYMPHATIC: No palpable lymph nodes/no lymphedema. MUSCULOSKELETAL: Normal joints with no swelling. Muscle tone is normal. LABS: Chest x-ray was normal. No acute process. Changes associated with bronchitis. WBC 22,000, hgb 17.5, hct 51.5, Sed Rate 5, plt count 322, sodium 134, potassium 4.2, CO2 16, glucose 465, AST 39, ALT 47, BUN 8, creatinine 1.24, Urine showed 1+ protein, 2+, glucose 1+ blood, yellow and clear. ABG's on room air O2 sat 92, pH 7.35, pCo2 36, pO2 67, bicarb 19.9, PO2 67, bicarb 19.9, total Co2 21. ASSESSMENT: 1. Acute bronchitis 2. Shortness of breath 3. Hypothyroidism 4. Diabetes Mellitus type 2 uncontrolled 5. Heavy smoker 6. COPD 7. Polyarthritis 8. Noncompliant with both diet, lifestyle, medications 9. Obesity PLAN: 1. We will admit 2. Routine telemetry orders 3. CBC and CMP daily 4. Start Rocephin 1 gram IV daily 5. Solu-Cortef 125mg IV Q 8 hours 6. T4 TSH 7. Xopenex NEB treatment Q 6 hours 8. Pulmicort NEB treatment 0.5 BID scheduled 9. Oxygen at 1-2 liters as needed 10.Normal saline at 75cc an hour Will follow closely. TIME SPENT: More than 70 minutes. MTDD
--- NOTE | 2019-04-27 10:37 | DS ---
DATE OF SERVICE: 03/28/19 FINAL DIAGNOSIS: 1. BRONCHITIS, ACUTE ON CHRONIC 2. ENTERITIS, RESOLVED 3. DIABETES MELLITUS TYPE II, UNCONTROLLED 4. LUNG DISEASE, CHRONIC 5. SINUSITIS, CHRONIC 6. HYPERTENSION 7. DYSLIPIDEMIA 8. HYPOTHYROID 9. ASTHMA 10. SMOKER 11. NONCOMPLIANT WITH DIET, LIFESTYLE 12. MORBID OBESITY LAST VITALS Temp Pulse Resp BP Pulse Ox 98.1 F 78 24 139/73 96 03/28/19 05:34 03/28/19 05:34 03/28/19 05:34 03/28/19 05:34 05:34 DISCHARGE INSTRUCTIONS: FOLLOW-UP: DR. TREJO THURSDAY APRIL 04, 2019 @ 9:30AM MEDICATIONS AT DISCHARGE: Albuterol/Ipratropium (Duoneb) 1 vial NEB RTQID [facility] Last Admin: 03/28/19 04:38 Dose: 1 vial Cyclobenzaprine HCl (Flexeril) 10 mg PO BEDTIME PRN PRN Reason: MUSCLE SPASMS Doxycycline Hyclate (Doxycycline Hyclate) 100 mg PO Q12HR [facility] Stop: 03/30/19 20:59 Last Admin: 03/27/19 20:44 Dose: 100 mg Felodipine (Plendil) 10 mg PO DAILY DANK Fenofibrate (Triglide) 160 mg PO DAILY [facility] Glipizide (Glucotrol) 10 mg PO BIDAC [facility] Last Admin: 03/28/19 06:19 Dose: 10 mg Losartan/HCTZ 100/12.5 mg PO DAILY [facility] Levothyroxine Sodium (Synthroid) 300 mcg PO DAILY LAB [facility] Last Admin: 03/28/19 06:19 Dose: 300 mcg Levothyroxine Sodium (Synthroid) 25 mcg PO DAILY LAB [facility] Last Admin: 03/28/19 06:19 Dose: 25 mcg Metformin HCl (Glucophage) 500 mg PO TIDWM [facility] Last Admin: 03/27/19 17:08 Dose: Not Given Alogliptin Benzoate (Nesina) 12.5 mg PO DAILY [facility] Simvastatin (Zocor) 40 mg PO DAILY [facility] NEW PRESCRIPTIONS: HOME NEBULIZER MACHINE DUONEBS 1 VIAL NEB TX Q6H SCHED # 1/MONTH SUPP / NR DOXYCYCLINE 100MG BID X7 DAYS #14 / NR PREDNISONE 10MG BID X5 DAYS # 10 / NR PHENERGAN WITH CODEINE SYRUP 1TSP Q6H PRN #6 OZ / NR DISCONTINUED MEDICATIONS: NONE DIET INSTRUCTIONS: DIABETIC ADA 1800 PIPPA DIET ACTIVITY: INDEPENDENT WITH ADLS SMOKING: SMOKER SMOKING CESSATION DISCUSSED DISEASE SPECIFIC EDUCATION: SMOKING CESSATION USE OF NEBULIZER CHRONIC BRONCHITIS UNCONTROLLED DM TYPE II HOSPITAL COURSE: This is an -[place] female who is admitted from the emergency room with acute bronchitis. Chest x-ray showed no pneumonia. She initially had some tightness and pain with coughing. This improved with IV steroids. She has a history of uncontrolled hypothyroidism, often has facial swelling. They did a CT scan which showed mild left maxillary sinusitis. She is a heavy smoker, likely did contribute to her bronchitis type symptoms. She was given 1 cc of Decadron in the emergency room and then 1 cc on the . This improved her discomfort with coughing. She was given IV Doxycycline 100 mg q.12hr. Will discharge her on p.o. Doxy as she has recently completed a Z-pack and Keflex for cough and congestion as well. T4 and TSH were normal. She has been given information regarding smoking cessation. She will be discharged in stable condition with home nebulizer machine, Duonebs q.6hr p.r.n., Doxy 100 mg b.i.d. times 7 days, Prednisone 10 mg b.i.d. times five days and Phenergan with Codeine cough syrup. TIME SPENT: More than 60 minutes. MTDD
--- NOTE | 2019-04-29 13:58 | PN ---
DATE OF SERVICE: 03/27/19 SUBJECTIVE: The patient was seen and examined in the room 119. She was hospitalized through the emergency room with acute bronchitis, chest x-ray and CT scan with pulmonary embolism protocol which was negative. It was hypoxic borderline. The patient is a heavy smoker and has bronchitis type of symptoms for the past couple of weeks and treated with antibiotics, Augmentin, Zithromax. The patient also was hypotensive. The patient has been given enough fluids. She was dehydrated. She has been given breathing treatment. She is feeling better. Now she wants to go outside and smoke. Counseling for smoking done. PHYSICAL EXAMINATION: HEENT: Head normocephalic, atraumatic. Eyes: Extraocular muscles are intact. Pupils are equal, round and reactive to light and accommodation. Ears: No lesions. Nose appeared normal. Throat: No exudate or erythema. NECK: Supple. No JVD, no carotid bruit. No lymphadenopathy or thyromegaly. LUNGS: Decreased breath sounds but clear to auscultation. Percussion note normal. Chest symmetrical. HEART: S1, S2, no S3. No murmurs. No cyanosis or clubbing. No ascites. Pulses: Dorsalis pedis and posterior tibial pulses +1 to +2 bilaterally. ABDOMEN: Soft. Nontender. Bowel sounds active. No CVA tenderness. No mass felt. EXTREMITIES: No edema. Full range of motion of all extremities, equal. NEUROLOGIC: No focal deficit. Cranial nerves II through XII are grossly intact. No headache, no double vision or headache. SKIN: Not dry. Intact. Turgor - normal. LYMPHATIC: No palpable lymph nodes/no lymphedema. MUSCULOSKELETAL: Normal joints with no swelling. Muscle tone is normal. ASSESSMENT: 1. ACUTE BRONCHITIS WITH SEVERE CHRONIC LUNG DISEASE FROM SMOKING. PLAN: 1. Give IV antibiotics, steroids, nebs. 2. The patient's WBC count is up because she was already on steroids as an outpatient. CONDITION: Stable. TIME SPENT: More than 30 minutes. Plan and coordination of the patient's care discussed in the presence of nurse. FERNANDO
== END 2019-03-28 10:12 | disposition home or self-care (01) ==
LOC: ED 06:34 → MEDSURG B 12:29
PROVIDERS: ADMIT Internal Medicine; ATTEND Internal Medicine
DX: R09.81 Nasal congestion; K52.9 Noninfective gastroenteritis and colitis, unspecified; Z91.19 Patient's noncompliance with other medical treatment and regimen; R42 Dizziness and giddiness; E11.65 Type 2 diabetes mellitus with hyperglycemia; R05 Cough; Z72.0 Tobacco use; E66.9 Obesity, unspecified; J32.9 Chronic sinusitis, unspecified; E78.5 Hyperlipidemia, unspecified; I10 Essential (primary) hypertension; R06.00 Dyspnea, unspecified; M13.0 Polyarthritis, unspecified; R14.0 Abdominal distension (gaseous); J20.9 Acute bronchitis, unspecified; J44.9 Chronic obstructive pulmonary disease, unspecified; R49.0 Dysphonia; E03.9 Hypothyroidism, unspecified

== ENCOUNTER 2024-04-28 10:26 | Observation (INO) ==
--- NOTE | 2024-04-28 11:04 | ED.PDOC ---
General ED Provider: Dr. ARRNO MATUTE MD Chief Complaint: Extremity Swelling/Pain Stated Complaint: 53-year-old female history of COPD not on home O2, diabetes, diabetic neuropathy, hypothyroidism, hypertension, asthma, presenting to the emergency department with bilateral leg swelling worse on the left side. Patient states this is going on for several weeks however it has gotten worse over the past 4 days. She is also reporting that it has gotten more painful. No fevers or chills no nausea or vomiting. No increased shortness of breath, no orthopnea. No palpitations. No headache or blurry vision. No unilateral weakness, no slurred speech. Time Seen by Provider: 04/28/24 10:30 Information Source: Patient Primary Care Provider: RENALDO TREJO MD Nursing and Triage Documentation Reviewed and Agree: Yes What is Opioid Naive?: *Opioid Naive implies the patient is not already taking opioids or not chronically receiving opioids on a daily basis. *PRN dosing is not "usually" associated with tolerance. *Patients are at higher risk of over-sedation and aspiration. What is Opioid Tolerant?: *Opioid Tolerance implies less than the expected response to an opioid. *Acquired tolerance is defined by the patient taking 60mg of oral morphine daily (or equianalgesic dose of another opioid) for 1 week or more. *Often associated with chronic pain. *May take more than usual dose to achieve desired pain control. Review of Systems Review Of Systems Constitutional: Denies Chills, Diaphoresis, Fever or Malaise Eyes: Reports No symptoms Respiratory: Denies Orthopnea or Shortness of Breath Cardiac: Denies Chest pain GI: Denies Abdomen distended Musculoskeletal: Denies Back pain Skin: Denies Bruising [facility] Medical History URI (upper respiratory infection) J06.9 - Acute upper respiratory infection, unspecified (ICD-10) Sinusitis J32.9 - CHRONIC SINUSITIS, UNSPECIFIED (ICD-10) Bronchitis J40 - BRONCHITIS, NOT SPECIFIED ACUTE OR CHRONIC (ICD-10) Acute bronchitis J20.9 - ACUTE BRONCHITIS, UNSPECIFIED (ICD-10) Family History Mother No problems noted. FATHER Hypertension Hyperlipemia Kidney disease Social History Smoking and tobacco status: Current some day smoker Tobacco: How many years used: 32 How long ago did patient quit smoking: trying to quit Quit status: considering quitting Second hand smoke exposure: No Smoking risk assessment performed: No Alcohol intake: never Counseling given: No Substance use type: does not use Counseling given: No Special julianne needs: No Agree to transfusion: Yes Adopted: No Caregiver/support person: No Foster care: No Household members: significant other Marital status: [employer] Lives independently: Yes Daycare: no daycare Number of children: 2 service: No MCFP: No Current occupational status: employed Current occupation: [employer] Current occupational exposures/hazards: No Pets and animals: Yes History of recent travel: No Sexually active: Yes Do you think of yourself as: straight/heterosexual Current gender identity: female Seatbelt use: always Drives intoxicated or rides with intoxicated truck driver flatbed: No Water heater temperature set < 120 degrees: Yes Working smoke detector in home: Yes Fire extinguisher in home: Yes Carbon monoxide detector in home: Yes Firearms in home: No Surgical History H/O cervical spine surgery Z98.890 - Other specified postprocedural states (ICD-10) History of musculoskeletal system surgery knee 6 years ago Z98.890 - Other specified postprocedural states (ICD-10) History of section 1997 1999 Z98.891 - History of uterine scar from previous surgery (ICD-10) Female Reproductive History Menstrual Hx Hysterectomy: No Hx Tubal Ligation: No Physical Exam Physical Exam Appearance: Reports Well-appearing, No pain distress and Well-nourished Ill-appearing: None Pain Distress: None Eyes: Reports BORIS, EOMI and Conjunctiva clear ENT: Reports Ears normal, Nose normal and Oropharynx normal Neck: Supple Respiratory: Reports Airway patent, Breath sounds clear, Breath sounds equal, Respirations nonlabored and Wheezes Cardiovascular: Reports RRR, Pulses normal, No rub and No murmur GI/: Reports Soft, Nontender, No masses, Bowel sounds normal and No Organomegaly Musculoskeletal: Reports Edema Skin: Reports Other (Patient has erythema to the left lower extremity, there is no obvious breaks in skin or wounds on foot. The redness goes up to the mid calf. Difficult to appreciate due to skin tone.) Neurological: Reports Sensation intact, Motor intact, Reflexes intact, Cranial nerves intact, Alert and Oriented Interpretation EKG Interpretation EKG Interpretation By: ED Physician Time of EKG #1: 11:56 Rate: Normal Rhythm: Sinus Ectopy: None [place]: Right ST Segment: Normal Interpretation: pos rbbb Course Course 04/28/24 11:06 04/28/24 11:06 Orders, Labs, Meds: Lab Review 04/28/24 04/28/24 11:06 12:27 WBC 7.22 RBC 4.69 Hgb 13.9 Hct 43.4 MCV 92.5 MCH 29.6 MCHC 32.0 RDW Coeff of Thee 16.4 H Plt Count 169 Immature Gran % (Auto) 0.3 Neut % (Auto) 60.4 Lymph % (Auto) 28.4 Evangeline % (Auto) 9.8 Eos % (Auto) 1.0 Baso % (Auto) 0.1 Neut # (Auto) 4.4 Lymph # (Auto) 2.1 Evangeline # (Auto) 0.7 Eos # (Auto) 0.1 Baso # (Auto) 0.0 Immature Gran # (Auto) 0.0 PT 9.8 INR 0.94 Sodium 135.4 Potassium 4.53 Chloride 103.5 Carbon Dioxide 27.2 Anion Gap 9.23 BUN 34.9 H Creatinine 2.31 H Estimated GFR (MDRD) 27.00 BUN/Creatinine Ratio 15.10 Glucose 220.3 H Calcium 8.40 Total Bilirubin 0.47 AST 75.8 H ALT 38.0 H Alkaline Phosphatase 118.5 Troponin I < 0.012 NT-Pro-B Natriuret Pep 30 Total Protein 7.55 Albumin 4.28 Globulin 3.27 Albumin/Globulin Ratio 1.30 TSH 117.000 H HCG, Quant < 2.390 SARS CoV-2 RNA Rapid MARY Negative Orders Category Date Time Status EKG-(ED ONLY) Stat CARDIO 04/28/24 10:54 Completed IV [ED IV/MEDIPORT/POWERPORT] .ONCE EMERGENCY 04/28/24 10:54 Active CBC W/ AUTO DIFF Stat LAB 04/28/24 11:06 Completed CMP [COMPREHENSIVE METABOLIC PANEL] Stat LAB 04/28/24 11:06 Completed COVID [SARS COV-2 RNA RAPID MARY] Stat LAB 04/28/24 12:27 Completed HCG,QUANTITATIVE Stat LAB 04/28/24 11:06 Completed PROBNP ED [NT-PROBNP(ED)] Stat LAB 04/28/24 11:06 Completed PT WITH INR Stat LAB 04/28/24 11:06 Completed T3 LEVEL (FREE) [FREE TRIIODOTHYRONINE (T3)] Stat LAB 04/28/24 11:06 Received T4 (THYROXINE) Stat LAB 04/28/24 11:06 Received THYROID STIMULATING HORMONE Stat LAB 04/28/24 11:06 Completed TROPONIN I Stat LAB 04/28/24 11:06 Completed 0.9 % Sodium Chloride [Saline Flush] Meds 04/28/24 10:54 Active 1 syr IVF PRN PRN Doxycycline Hyclate Inj [Doxy-100] 100 mg Meds 04/28/24 12:15 Discontinued 0.9 % Sodium Chloride [Sodium Chloride 100Ml] 100 ml IV ONCE Ipratropium/Albuterol Neb [Duoneb] Meds 04/28/24 10:57 Discontinued 3 ml NEB ONCE ONE CXR [CHEST, 2 VIEWS PA & LAT] Stat RADS 04/28/24 10:54 Taken FOOT, LEFT 3 VIEWS Stat RADS 04/28/24 11:04 Completed U/S VENOUS SCAN COY LEGS Stat RADS 04/28/24 10:59 Completed Medications Generic Name Dose Route Start Last Admin Trade Name Freq PRN Reason Stop Dose Admin Acetaminophen 650 mg 04/28/24 13:12 Acetaminophen 325 Mg Tablet PO Q4H PRN Mild Pain Albuterol Sulfate 2 puff 04/28/24 15:30 Albuterol Sulfate 8 Gm Inhaler IH Q4H PRN BRONCHOSPASM Albuterol/Ipratropium 3 ml 04/28/24 15:38 04/28/24 15:51 Ipratropium/Albuterol Vial.Neb NEB 3 ml RTQ6H PRN Administration Wheezing Atorvastatin Calcium 20 mg 04/29/24 09:00 Atorvastatin Calcium 20 Mg Tablet PO DAILY DANK Budesonide/Formoterol Fumarate 2 puff 04/28/24 21:00 Budesonide/Formoterol Fumarate 160/4.5 Mcg Inhaler IH BID DANK Cephalexin 500 mg 04/28/24 14:30 04/28/24 14:31 Cephalexin 500 Mg Capsule PO 05/01/24 14:29 500 mg QID DANK Administration Sodium Chloride 1,000 mls @ 100 mls/hr 04/28/24 13:30 04/28/24 15:21 Sodium Chloride IV 100 mls/hr .Q10H DANK Administration Doxycycline Hyclate 100 mg/ 100 mls @ 50 mls/hr 04/28/24 21:00 Sodium Chloride IV 05/01/24 20:59 Q12HR DANK Insulin Glargine 50 unit 04/29/24 09:00 Insulin Glargine,Hum.Rec.Anlog 100 Units/Ml SUBCUT QAM [facility] Insulin Human Regular 0 unit 04/28/24 14:13 Insulin Regular, Human 100 Unit/Ml (10ml) Vial SUBCUT PRN PRN Hyperglycemia Protocol Levothyroxine Sodium 25 mcg 04/29/24 06:00 Levothyroxine Sodium 25 Mcg Tablet PO QDAC2 DANK Levothyroxine Sodium 300 mcg 04/29/24 06:00 Levothyroxine Sodium 100 Mcg Tablet PO QDAC2 DANK Loratadine 10 mg 04/29/24 09:00 Loratadine 10 Mg Tablet PO DAILY DANK Losartan Potassium 100 mg 04/29/24 09:00 Losartan Potassium 100 Mg Tablet PO DAILY DANK Pantoprazole Sodium 40 mg 04/29/24 06:00 Pantoprazole Sodium 40 Mg Tablet. PO QDAC2 DANK Pregabalin 225 mg 04/28/24 21:00 Pregabalin 75 Mg Capsule PO BID DANK Sodium Chloride 1 syr 04/28/24 10:54 0.9% Sodium Chloride 10 Ml Disp.Syrin IVF PRN PRN To flush IV Tizanidine HCl 4 mg 04/28/24 15:01 Tizanidine Hcl 4 Mg Tablet PO Q8H PRN Spasms Tramadol HCl 50 mg 04/28/24 15:01 Tramadol Hcl 50 Mg Tablet PO TID PRN Pain Discontinued Medications Generic Name Dose Route Start Last Admin Trade Name Freq PRN Reason Stop Dose Admin Albuterol/Ipratropium 3 ml 04/28/24 10:57 04/28/24 11:47 Ipratropium/Albuterol Vial.Neb NEB 04/28/24 10:58 3 ml ONCE ONE Administration Doxycycline Hyclate 100 mg/ 100 mls @ 50 mls/hr 04/28/24 12:15 04/28/24 12:58 Sodium Chloride IV 04/28/24 14:14 50 mls/hr ONCE ONE Administration Vital Signs: Temp Pulse Resp BP Pulse Ox 04/28/24 10:29 97.4 F L 69 20 135/56 L 94 L Discharge Plan Discharge Patient Disposition: PLACED OBSERVATION Discharge Problem: Cellulitis, Hypothyroid, RUDI (acute kidney injury) Did you review [place] LABEL PRESS OPERATOR for ALL controlled substances?: Not Applicable ED Provider: ARRON MATUTE Physician Progress Note: 53-year-old female history of COPD, diabetes, hypertension coming in with acute on chronic bilateral leg swelling seems worse on the left side. Patient states she is also having increased pain with walking. She has noted to have erythema of the left side that does seem consistent with cellulitis however there is no obvious breaks in the skin. There is no crepitus or discoloration. Do feel this is most likely consistent with cellulitis. Patient reports having an ultrasound however the records were reviewed and it looks like she had arterial Dopplers. Will get DVT studies will also get CHF workup. Possible renal sufficiency, CHF, although these seem less likely. If workup negative will likely give IV antibiotics for cellulitis with admission. Patient also having scant wheezing on exam will give albuterol neb. 12:17 Patient's workup has returned. No elevated white blood cell count she does have a new RUDI with a creatinine of 2 point for 3 which is up from 1.3 a couple of months ago. She does have a significantly elevated thyroid level is the lab because it is still pending. Will treat for cellulitis. She does have a foreign body noted on x-ray of her foot however on physical exam I did not see any breaks in the skin there. Patient does not remedy specific trauma like this is chronic and potentially unrelated. Discussed with hospitalist for admission for RUDI and cellulitis they agreed to evaluate for admission. Will start IV doxycycline.
[2024-04-28 11:12] LABS: BASOPHILS % (AUTO) 0.1 % (0.0-3.0); EOSINOPHILS # (AUTO) 0.1 K/ul (0.0-0.7); HEMATOCRIT 43.4 % (37.0-47.0); HEMOGLOBIN 13.9 g/dl (12.0-16.0); IMMATURE GRANULOCYTE % (AUTO) 0.3 % (0.0-5.0); LYMPHOCYTES # (AUTO) 2.1 K/uL (0.60-3.4); LYMPHOCYTES % (AUTO) 28.4 (10.0-50.0); MEAN CORPUSCULAR HEMOGLOBIN 29.6 pg (27.0-31.0); MEAN CORPUSCULAR VOLUME 92.5 fl (81.0-99.0); MONOCYTES # (AUTO) 0.7 K/uL (0.4-2.0); MONOCYTES % (AUTO) 9.8 (0-10); NEUTROPHILS # (AUTO) 4.4 K/ul (2.0-6.9); NEUTROPHILS % (AUTO) 60.4 % (42.2-75.2); PLATELET COUNT 169 10^3/uL (140-440); RDW COEFFICIENT OF VARIATION 16.4 % (11.6-14.8); RED BLOOD COUNT 4.69 10^6/ul (4.20-5.40); WHITE BLOOD COUNT 7.22 K/ul (4.6-10.2)
[2024-04-28 11:24] LABS: ALBUMIN 4.28 g/dL (3.5-5.0); ALKALINE PHOSPHATASE 118.5 U/L (38-126); ASPARTATE AMINO TRANSFERASE 75.8 U/L (14-36); BILIRUBIN,TOTAL 0.47 mg/dL (0.2-1.3); BLOOD UREA NITROGEN 34.9 mg/dL (7-17); CARBON DIOXIDE 27.2 mmol/L (22-30.0); CHLORIDE 103.5 mmol/L (98-107); CREATININE 2.31 mg/dL (0.60-1.30); GLUCOSE 220.3 mg/dL (74-106); POTASSIUM 4.53 mmol/L (3.5-5.1); SODIUM 135.4 mmol/L (134.5-145); TOTAL PROTEIN 7.55 g/dL (6.3-8.2)
--- NOTE | 2024-04-28 11:29 | DI ---
EXAM: RADIOGRAPHS, LEFT FOOT HISTORY: Left foot pain, redness. Evaluate for osteomyelitis. COMPARISON: 02/15/2023. TECHNIQUE: Three views. FINDINGS: Bone mineralization normal. Old fifth metatarsal shaft fracture noted. Stable deformity of the fourth metatarsal neck also likely due to prior trauma. Old lateral malleolar avulsion fractu re again noted. There is no acute fracture or dislocation. There is no periosteal reaction or osseo us destruction. There is soft tissue swelling over the fluid, greater dorsally. Stable 0.3 cm linea r radiopaque foreign object medial to the first metatarsal head. IMPRESSION: 1. Soft tissue swelling without radiographic evidence for osteomyelitis. 2. Small foreign object near the first metatarsal head. 3. Stable old fractures.
[2024-04-28 11:41] LABS: HCG,QUANTITATIVE < 2.390 mIU/mL
[2024-04-28 11:44] LABS: PROTHROMBIN TIME 9.8 SEC (9.3-11.0)
[2024-04-28] MEDS: DUONEB NEB ONE (11:47)
[2024-04-28 11:53] LABS: TROPONIN I < 0.012 ng/ml (0.0000-0.120)
--- NOTE | 2024-04-28 11:57 | US ---
EXAM: BILATERAL LOWER EXTREMITY VENOUS DOPPLER. HISTORY: Bilateral leg swelling. COMPARISON: None. TECHNIQUE: A duplex Doppler study was performed consisting of integrated two dimensional (2D) real-t jaswinder imaging color flow Doppler and Doppler spectral analysis utilizing linear array probes. FINDINGS: There is normal flow, venous waveforms, compressibility and augmentation of flow within th e right and left common femoral, greater saphenous, profunda, femoral, popliteal, posterior tibial, a nterior tibial and peroneal veins. Subcutaneous edema noted in the calves. IMPRESSION: No evidence for right or left lower extremity deep vein thrombosis at the levels examined.
[2024-04-28 12:58] LABS: SARS COV-2 RNA RAPID NAAT NEGATIVE (NEGATIVE)
[2024-04-28] MEDS: DOXY-100 100 MG in SODIUM CHLORIDE 100ML 100 ML IV ONE (12:58)
[2024-04-28] MEDS ORDERED: TYLENOL PO PRN (13:12)
[2024-04-28 13:58] VITALS: BMI 32.6
--- NOTE | 2024-04-28 14:00 | PCM ---
Date of Service Date Seen by Provider: 04/28/24 Time Seen by Provider: 13:45 Admit Day/Time Admission Date: 04/28/24 Admission Time: 13:30 Reason for Admission Chief Complaint: CELLULITIS,RUDI Hospital Provider Hospital Provider: JUAN CANTRELL, [facility] Primary Care Physician Primary Care Physician: RENALDO OLSON MD History of Present Illness History of Present Illness: 53 yo female presented to the ER with complaints of redness and swelling to BLE, L>R. Reports it started approx. 1 week ago and has worsened. Denies any injury to the feet. Denies any open areas that she is aware of. Patient is type 2 diabetic. X-ray showed soft tissue swelling w/o osteomyelitis. No fever or WBC count. Patient was also found to have elevated creatinine at 2.3, baseline is 1- 1.1. TSH was checked and found to be >100. Patient states she has been out of her 300 mcg synthroid tablets and only taking her 25 mcg until he refills are approved by PCP. Patient admitted to med/surg observation. Case Discussed With Case Discussed With: Patient's case was discussed with the ER Physicians, Dr. Coburn. * [facility] Medical History URI (upper respiratory infection) J06.9 - Acute upper respiratory infection, unspecified (ICD-10) Sinusitis J32.9 - CHRONIC SINUSITIS, UNSPECIFIED (ICD-10) Bronchitis J40 - BRONCHITIS, NOT SPECIFIED ACUTE OR CHRONIC (ICD-10) Acute bronchitis J20.9 - ACUTE BRONCHITIS, UNSPECIFIED (ICD-10) Surgical History H/O cervical spine surgery Z98.890 - Other specified postprocedural states (ICD-10) History of musculoskeletal system surgery knee 6 years ago Z98.890 - Other specified postprocedural states (ICD-10) History of section 1997 1999 Z98.891 - History of uterine scar from previous surgery (ICD-10) Family History Mother No problems noted. FATHER Hypertension Hyperlipemia Kidney disease Social History Smoking and tobacco status: Current some day smoker Tobacco: How many years used: 32 How long ago did patient quit smoking: trying to quit Quit status: considering quitting Second hand smoke exposure: No Smoking risk assessment performed: No Alcohol intake: never Counseling given: No Substance use type: does not use Counseling given: No Special julianne needs: No Agree to transfusion: Yes Adopted: No Caregiver/support person: No Foster care: No Household members: significant other Marital status: [employer] Lives independently: Yes Daycare: no daycare Number of children: 2 service: No care home: No Current occupational status: employed Current occupation: [id number] Current occupational exposures/hazards: No Pets and animals: Yes History of recent travel: No Sexually active: Yes Do you think of yourself as: straight/heterosexual Current gender identity: female Seatbelt use: always Drives intoxicated or rides with intoxicated swing driver: No Water heater temperature set < 120 degrees: Yes Working smoke detector in home: Yes Fire extinguisher in home: Yes Carbon monoxide detector in home: Yes Firearms in home: No Allergies Allergies Allergy/AdvReac Type Severity Reaction Status Date / Time cephalexin monohydrate AdvReac Hives Verified 04/28/24 10:33 [From Keflex] Penicillins AdvReac Hives Verified 04/28/24 10:33 Current Medications Home Medications levothyroxine 300 mcg tablet See Rx Instructions .Route .COMPLEX #30 tabs 07/23/23 [Rx Confirmed 04/28/24 Last Taken Unknown] blood-glucose meter (OneTouch Ultra2 Meter) #1 ea 07/30/23 [Rx Confirmed 04/28/24 Last Taken Unknown] lancets 33 gauge (OneTouch Delica Plus Lancet) #100 ea 10/02/23 [Rx Confirmed 04/28/24 Last Taken Unknown] losartan 100 mg tablet See Rx Instructions .Route .COMPLEX #30 tabs 10/22/23 [Rx Confirmed 04/28/24 Last Taken Unknown] blood sugar diagnostic (OneTouch Ultra Test strips) #100 ea 10/23/23 [Rx Confirmed 04/28/24 Last Taken Unknown] fluticasone propionate 50 mcg/actuation nasal spray,suspension See Rx Instructions .Route .COMPLEX #16 grams 12/10/23 [Rx Confirmed 04/28/24 Last Taken Unknown] metformin 1,000 mg tablet See Rx Instructions .Route .COMPLEX #60 tabs 12/24/23 [Rx Confirmed 04/28/24 Last Taken Unknown] glipizide 10 mg tablet See Rx Instructions .Route .COMPLEX #180 tabs 01/21/24 [Rx Confirmed 04/28/24 Last Taken Unknown] albuterol sulfate 90 mcg/actuation aerosol inhaler See Rx Instructions .Route .COMPLEX #6.7 grams 01/29/24 [Rx Confirmed 04/28/24 Last Taken Unknown] atorvastatin 20 mg tablet (Lipitor) 20 mg PO QDAY #30 tabs 02/06/24 [Rx Confirmed 04/28/24 Last Taken Unknown] insulin glargine 100 unit/mL (3 mL) subcutaneous pen (Lantus Solostar U-100 Insulin) 50 unit (0.5 mL) subcut QAM #15 mL 02/06/24 [Rx Confirmed 04/28/24 Last Taken Unknown] semaglutide 7 mg tablet (Rybelsus) 7 mg PO QDAY #30 tabs 02/28/24 [Rx Confirmed 04/28/24 Last Taken Unknown] triamterene 37.5 mg-hydrochlorothiazide 25 mg capsule 1 cap PO QDAY PRN swelling #30 caps 03/17/24 [Rx Confirmed 04/28/24 Last Taken Unknown] budesonide-formoterol HFA 160 mcg-4.5 mcg/actuation aerosol inhaler (Symbicort) See Rx Instructions .Route .COMPLEX #10.2 ea 04/14/24 [Rx Confirmed 04/28/24 Last Taken Unknown] levothyroxine 25 mcg tablet See Rx Instructions .Route .COMPLEX #30 tabs 04/14/24 [Rx Confirmed 04/28/24 Last Taken Unknown] loratadine 10 mg tablet See Rx Instructions .Route .COMPLEX #30 tabs 04/14/24 [Rx Confirmed 04/28/24 Last Taken Unknown] nabumetone 500 mg tablet See Rx Instructions .Route .COMPLEX #60 tabs 04/14/24 [Rx Confirmed 04/28/24 Last Taken Unknown] pantoprazole 40 mg tablet,delayed release See Rx Instructions .Route .COMPLEX #30 tabs 04/14/24 [Rx Confirmed 04/28/24 Last Taken Unknown] pregabalin 225 mg capsule (Lyrica) 225 mg PO BID 30 days #60 caps 04/14/24 [Rx Confirmed 04/28/24 Last Taken Unknown] tizanidine 4 mg tablet (Zanaflex) 4 mg PO Q8H PRN muscle spasticity 30 days #90 tabs 04/14/24 [Rx Confirmed 04/28/24 Last Taken Unknown] tramadol 50 mg tablet 50 mg PO TID PRN pain #90 tabs 04/14/24 [Rx Confirmed 04/28/24 Last Taken Unknown] Home Acetaminophen (Acetaminophen 325 Mg Tablet) 650 mg PO Q4H PRN PRN Reason: Mild Pain Doxycycline Hyclate 100 mg/ (Sodium Chloride) 100 mls @ 50 mls/hr IV ONCE ONE Stop: 04/28/24 14:14 Last Admin: 04/28/24 12:58 Dose: 50 mls/hr Sodium Chloride (Sodium Chloride) 1,000 mls @ 100 mls/hr IV .Q10H DANK Doxycycline Hyclate 100 mg/ (Sodium Chloride) 100 mls @ 50 mls/hr IV Q12HR DANK Stop: 05/01/24 20:59 Sodium Chloride (0.9% Sodium Chloride 10 Ml Disp.Syrin) 1 syr IVF PRN PRN PRN Reason: To flush IV Discontinued Medications Albuterol/Ipratropium (Ipratropium/Albuterol Vial.Neb) 3 ml NEB ONCE ONE Stop: 04/28/24 10:58 Last Admin: 04/28/24 11:47 Dose: 3 ml Opioid Naive vs. Tolerant Does Patient Take Opioids?: Yes Is Patient Opioid Naive?: No What is Opioid Naive?: *Opioid Naive implies the patient is not already taking opioids or not chronically receiving opioids on a daily basis. *PRN dosing is not "usually" associated with tolerance. *Patients are at higher risk of over-sedation and aspiration. Is Patient Opioid Tolerant?: No What is Opioid Tolerant?: *Opioid Tolerance implies less than the expected response to an opioid. *Acquired tolerance is defined by the patient taking 60mg of oral morphine daily (or equianalgesic dose of another opioid) for 1 week or more. *Often associated with chronic pain. *May take more than usual dose to achieve desired pain control. Review of Systems Constitutional: Reports No symptoms Head: Reports Normocephalic Eyes: Reports No symptoms Ears: Reports No symptoms Nose: Reports No symptoms Mouth: Reports No symptoms Throat: Reports No symptoms Cardiovascular: Reports No symptoms Respiratory: Reports No symptoms Gastrointestinal: Reports No symptoms Genitourinary: Reports No Symptoms Musculoskeletal: Reports No symptoms Dermatologic: Reports Skin Changes (redness and swelling to BLE) Endocrine: Reports No symptoms Hematology: Reports No symptoms Immunology: Reports No symptoms Neurological: Reports No symptoms Psychiatric: Reports No symptoms Physical examination Most Recent Vital Signs: Most Recent Vital Signs Temperature 96.3 F L 04/28/24 13:33 Temperature Source Oral 04/28/24 13:33 Temperature Source Infrared 04/28/24 10:29 Pulse Rate 66 04/28/24 13:33 Respiratory Rate 18 04/28/24 13:33 Blood Pressure 135/56 L 04/28/24 10:29 Blood Pressure Left Arm 133/60 04/28/24 13:33 Blood Pressure Position Sitting 04/28/24 13:33 O2 Sat by Pulse Oximetry 98 04/28/24 13:33 Oxygen Delivery Method Room Air 04/28/24 13:33 Height 5 ft 11 in 04/28/24 13:33 Weight 234 lb 5 oz 04/28/24 13:33 Telemetry Heart Rate 72 11/07/22 13:33 Appearance: Positive No Apparent Distress and Alert and Oriented x3 Skin: Positive Warm and Good Turgor HEENT: Positive Normocephalic and PERRLA Neck: Positive Supple and Midline Trachea Chest/Lungs: Positive Symmetrical With Equal Breath Sounds, Wheezes (mild expiratory throughout lung [place]) and Good Air Movement all 4 Lung [place] Heart: Positive RRR and Pulses Normal GI/: Positive Soft, Nontender and Bowel Sounds Normal Musculoskeletal: Positive Not Examined Extremities: Positive Edema (+1 pitting edema), Intact Peripheral Pulses, Stable Joints Without Laxity, Good ROM in All Joints and Other (mild erythema to top of L foot and ankle area, mild erythema to ankle area of R leg) Neurological: Positive Sensation Intact, Motor intact, Alert, Oriented and Muscle Strength 5/5 in Upper and Lower Extremities Bilaterally Labs This Visit Labs This Visit: Labs This Visit 04/28/24 04/28/24 11:06 12:27 WBC 7.22 RBC 4.69 Hgb 13.9 Hct 43.4 MCV 92.5 MCH 29.6 MCHC 32.0 RDW Coeff of Thee 16.4 H Plt Count 169 Immature Gran % (Auto) 0.3 Neut % (Auto) 60.4 Lymph % (Auto) 28.4 [place] % (Auto) 9.8 Eos % (Auto) 1.0 Baso % (Auto) 0.1 Neut # (Auto) 4.4 Lymph # (Auto) 2.1 [place] # (Auto) 0.7 Eos # (Auto) 0.1 Baso # (Auto) 0.0 Immature Gran # (Auto) 0.0 PT 9.8 INR 0.94 Sodium 135.4 Potassium 4.53 Chloride 103.5 Carbon Dioxide 27.2 Anion Gap 9.23 BUN 34.9 H Creatinine 2.31 H Estimated GFR (MDRD) 27.00 BUN/Creatinine Ratio 15.10 Glucose 220.3 H Calcium 8.40 Total Bilirubin 0.47 AST 75.8 H ALT 38.0 H Alkaline Phosphatase 118.5 Troponin I < 0.012 NT-Pro-B Natriuret Pep 30 Total Protein 7.55 Albumin 4.28 Globulin 3.27 Albumin/Globulin Ratio 1.30 TSH 117.000 H HCG, Quant < 2.390 SARS CoV-2 RNA Rapid MARY Negative Review Statement Review Statement: I have independently reviewed and interpreted the labs/EKGs/imaging that were ordered by the ER provider. I have reviewed all outside records that are available currently in our EMR including imaging/notes/labs from previous vi sits. Plan Plan: 1. RUDI - baseline creatinine 1-1.1; NS@100mL/hr, avoid nephrotoxins/hypotension 2. Cellulitis - mild, treating with doxycycline and keflex, no open wounds noted to culture 3. Hypothyroidism - uncontrolled, T3 & T4 pending, TSH>100, hasn't been taking prescribed home dose, restart 325 mcg as previously prescribed 4. Acute Transaminitis - like due to #2, trend and monitor 5. Diabetes Mellitus, Type 2 - chronic, accuchecks qid with ssi, hold oral agents, ADA diet 6. COPD - chronic, not in exacerbation, continue home medications DVT Prophylaxis: Ambulation Time Spent: Greater than 80 minutes spent with patient, 50% of the time spent with this patient was devoted to counseling and coordination of care. Advanced Care Plannin minutes spent discussing advance care planning. Smoking Cessation: 3-10 minutes spent discussing smoking cessation. Disposition: Admit to: Med/Surg Observation Full Code Discussed Plan of Care with Dr. Krysta Olson. Medications Medication Orders: Medications Ordered Category Date Time Status 0.9 % Sodium Chloride [Saline Flush] Meds 04/28/24 10:54 Active 1 syr IVF PRN PRN Acetaminophen [Tylenol] Meds 04/28/24 13:12 Active 650 mg PO Q4H PRN Doxycycline Hyclate Inj [Doxy-100] 100 mg Meds 04/28/24 12:15 Active 0.9 % Sodium Chloride [Sodium Chloride 100Ml] 100 ml IV ONCE Doxycycline Hyclate Inj [Doxy-100] 100 mg Meds 04/28/24 21:00 Active 0.9 % Sodium Chloride [Sodium Chloride 100Ml] 100 ml IV Q12HR Sodium Chloride 0.9% [Sodium Chloride] 1,000 ml Meds 04/28/24 13:30 Active IV 100 mls/hr
[2024-04-28] MEDS: KEFLEX PO SCH (14:31)
[2024-04-28] MEDS ORDERED: ULTRAM PO PRN (15:01)
[2024-04-28] MEDS ORDERED: LEVOTHYROXINE 300 MCG SCH (15:15)
[2024-04-28] MEDS: SODIUM CHLORIDE 1,000 ML IV SCH (15:21)
[2024-04-28] MEDS ORDERED: VENTOLIN HFA IH PRN (15:30)
[2024-04-28] MEDS: DUONEB NEB PRN (15:51)
[2024-04-28] MEDS: DOXY-100 100 MG in SODIUM CHLORIDE 100ML 100 ML IV SCH (21:36)
[2024-04-28] MEDS: LYRICA PO SCH (21:38)
[2024-04-28] MEDS: SYMBICORT 160-4.5 MCG INHALER IH SCH (21:39)
[2024-04-29] MEDS: PROTONIX PO SCH (05:24)
[2024-04-29] MEDS: SYNTHROID PO SCH ×2 (05:24)
[2024-04-29 05:42] LABS: BASOPHILS % (AUTO) 0.1 % (0.0-3.0); EOSINOPHILS # (AUTO) 0.1 K/ul (0.0-0.7); EOSINOPHILS % (AUTO) 1.4 % (0.0-7.0); HEMATOCRIT 49.9 % (37.0-47.0); IMMATURE GRANULOCYTE % (AUTO) 0.3 % (0.0-5.0); LYMPHOCYTES # (AUTO) 2.3 K/uL (0.60-3.4); LYMPHOCYTES % (AUTO) 29.7 (10.0-50.0); MEAN CORPUSCULAR HEMOGLOBIN 29.2 pg (27.0-31.0); MEAN CORPUSCULAR HGB CONC 30.1 (31.8-35.4); MEAN CORPUSCULAR VOLUME 97.3 fl (81.0-99.0); MONOCYTES # (AUTO) 0.9 K/uL (0.4-2.0); MONOCYTES % (AUTO) 11.4 (0-10); NEUTROPHILS # (AUTO) 4.4 K/ul (2.0-6.9); NEUTROPHILS % (AUTO) 57.1 % (42.2-75.2); PLATELET COUNT 177 10^3/uL (140-440); RDW COEFFICIENT OF VARIATION 16.8 % (11.6-14.8); RED BLOOD COUNT 5.13 10^6/ul (4.20-5.40); WHITE BLOOD COUNT 7.72 K/ul (4.6-10.2)
[2024-04-29 05:56] LABS: ALANINE AMINOTRANSFERASE 33.9 U/L (0-35); ALBUMIN 4.11 g/dL (3.5-5.0); ALKALINE PHOSPHATASE 128.1 U/L (38-126); ASPARTATE AMINO TRANSFERASE 55.5 U/L (14-36); BILIRUBIN,TOTAL 0.46 mg/dL (0.2-1.3); BLOOD UREA NITROGEN 27.2 mg/dL (7-17); CALCIUM 8.61 mg/dL (8.4-10.2); CARBON DIOXIDE 23.5 mmol/L (22-30.0); CHLORIDE 111.4 mmol/L (98-107); CREATININE 1.82 mg/dL (0.60-1.30); POTASSIUM 5.06 mmol/L (3.5-5.1); TOTAL PROTEIN 7.7 g/dL (6.3-8.2)
[2024-04-29] MEDS: CLARITIN PO SCH (08:29)
[2024-04-29] MEDS: COZAAR PO SCH (08:29)
[2024-04-29] MEDS: LIPITOR PO SCH (08:30)
[2024-04-29] MEDS: LANTUS SUBCUT SCH (08:32)
--- NOTE | 2024-04-29 09:52 | PCM.PROG ---
Date/Time Seen Date Seen by Provider: 04/29/24 Time Seen by Provider: 08:45 Provider Provider: JUAN CANTRELL, [facility] Chief Complaint Chief Complaint: CELLULITIS,RUDI Subjective Subjective: No events overnight. No fever. Requires oxygen with sleep. Likely need sleep study upon discharge. Redness improving to BLE. Objective Appearance: Positive No Apparent Distress and Alert and Oriented x3 Chest/Lungs: Positive Symmetrical With Equal Breath Sounds and Wheezes (mild, throughout lung [place]ace[place]) Heart: Positive RRR and Pulses Normal GI/: Positive Soft, Nontender, Bowel Sounds Normal and No Distention Musculoskeletal: Positive Other (mild improving erythema to BLE L>R) Neurological: Positive Sensation Intact, Motor intact, Alert, Oriented and Muscle Strength 5/5 in Upper and Lower Extremities Bilaterally Vital Signs Vital Signs: Vital Signs: Last 24 Hours 04/28/24 10:29 04/28/24 13:33 04/28/24 13:33 Temperature 97.4 F L 96.3 F L Temperature Source Infrared Oral Pulse Rate 69 66 Pulse Rate [Apical] 72 Respiratory Rate 20 18 18 Blood Pressure 135/56 L Blood Pressure Mean Blood Pressure Left Arm 133/60 Blood Pressure Location Blood Pressure Position Sitting O2 Sat by Pulse Oximetry 94 L 98 Oxygen Delivery Method Room Air Room Air Oxygen Flow Rate Height 5 ft 11 in 5 ft 11 in Weight 232 lb 2.348 oz 234 lb 5 oz 04/28/24 14:00 04/28/24 15:00 04/28/24 16:00 Temperature Temperature Source Pulse Rate Pulse Rate [Apical] Respiratory Rate Blood Pressure Blood Pressure Mean Blood Pressure Left Arm Blood Pressure Location Blood Pressure Position O2 Sat by Pulse Oximetry Oxygen Delivery Method Room Air Room Air Room Air Oxygen Flow Rate Height Weight 04/28/24 16:12 04/28/24 17:00 04/28/24 18:00 Temperature Temperature Source Pulse Rate Pulse Rate [Apical] Respiratory Rate Blood Pressure Blood Pressure Mean Blood Pressure Left Arm Blood Pressure Location Blood Pressure Position O2 Sat by Pulse Oximetry Oxygen Delivery Method Nasal Cannula Nasal Cannula Nasal Cannula Oxygen Flow Rate 2 Height Weight 04/28/24 18:00 04/28/24 19:00 04/28/24 19:55 Temperature 97.0 F L Temperature Source Temporal Artery Scan Pulse Rate 59 L Pulse Rate [Apical] Respiratory Rate 16 Blood Pressure 155/76 H Blood Pressure Mean 102 Blood Pressure Left Arm Blood Pressure Location Right Arm Blood Pressure Position Sitting O2 Sat by Pulse Oximetry 98 97 Oxygen Delivery Method Room Air Nasal Cannula Nasal Cannula Oxygen Flow Rate 2 Height Weight 04/28/24 20:00 04/28/24 20:00 04/28/24 21:00 Temperature Temperature Source Pulse Rate Pulse Rate [Apical] Respiratory Rate 20 Blood Pressure Blood Pressure Mean Blood Pressure Left Arm Blood Pressure Location Blood Pressure Position O2 Sat by Pulse Oximetry Oxygen Delivery Method Nasal Cannula Nasal Cannula Nasal Cannula Oxygen Flow Rate 2 Height Weight 04/28/24 21:33 04/28/24 22:00 04/28/24 23:00 Temperature 97.4 F L Temperature Source Temporal Artery Scan Pulse Rate 62 Pulse Rate [Apical] Respiratory Rate 19 Blood Pressure 139/76 Blood Pressure Mean 97 Blood Pressure Left Arm Blood Pressure Location Right Arm Blood Pressure Position Sitting O2 Sat by Pulse Oximetry 99 Oxygen Delivery Method Nasal Cannula Nasal Cannula Nasal Cannula Oxygen Flow Rate 2 Height Weight 04/29/24 00:00 04/29/24 01:00 04/29/24 02:00 Temperature Temperature Source Pulse Rate Pulse Rate [Apical] Respiratory Rate Blood Pressure Blood Pressure Mean Blood Pressure Left Arm Blood Pressure Location Blood Pressure Position O2 Sat by Pulse Oximetry Oxygen Delivery Method Nasal Cannula Nasal Cannula Nasal Cannula Oxygen Flow Rate Height Weight 04/29/24 02:00 04/29/24 03:00 04/29/24 04:00 Temperature Temperature Source Pulse Rate Pulse Rate [Apical] Respiratory Rate 20 Blood Pressure Blood Pressure Mean Blood Pressure Left Arm Blood Pressure Location Blood Pressure Position O2 Sat by Pulse Oximetry Oxygen Delivery Method Room Air Nasal Cannula Nasal Cannula Oxygen Flow Rate 2 Height Weight 04/29/24 05:00 04/29/24 05:32 04/29/24 06:00 Temperature 96.5 F L Temperature Source Temporal Artery Scan Pulse Rate 67 Pulse Rate [Apical] Respiratory Rate 21 H Blood Pressure 105/73 Blood Pressure Mean 83 Blood Pressure Left Arm Blood Pressure Location Blood Pressure Position O2 Sat by Pulse Oximetry 96 97 Oxygen Delivery Method Nasal Cannula Nasal Cannula Nasal Cannula Oxygen Flow Rate 2 2 Height Weight 04/29/24 06:00 04/29/24 07:00 04/29/24 08:00 Temperature Temperature Source Pulse Rate Pulse Rate [Apical] Respiratory Rate Blood Pressure Blood Pressure Mean Blood Pressure Left Arm Blood Pressure Location Blood Pressure Position O2 Sat by Pulse Oximetry Oxygen Delivery Method Nasal Cannula Nasal Cannula Nasal Cannula Oxygen Flow Rate Height Weight Lab Results Lab Results: Lab Results: Last 24 Hours 04/29/24 04/28/24 04/28/24 05:23 12:27 11:06 WBC 7.72 7.22 RBC 5.13 4.69 Hgb 15.0 13.9 Hct 49.9 H D 43.4 MCV 97.3 92.5 MCH 29.2 29.6 MCHC 30.1 L 32.0 RDW Coeff of Thee 16.8 H 16.4 H Plt Count 177 169 Immature Gran % (Auto) 0.3 0.3 Neut % (Auto) 57.1 60.4 Lymph % (Auto) 29.7 28.4 [place] % (Auto) 11.4 H 9.8 Eos % (Auto) 1.4 1.0 Baso % (Auto) 0.1 0.1 Neut # (Auto) 4.4 4.4 Lymph # (Auto) 2.3 2.1 [place] # (Auto) 0.9 0.7 Eos # (Auto) 0.1 0.1 Baso # (Auto) 0.0 0.0 Immature Gran # (Auto) 0.0 0.0 PT 9.8 INR 0.94 Sodium 141.0 135.4 Potassium 5.06 4.53 Chloride 111.4 H 103.5 Carbon Dioxide 23.5 27.2 Anion Gap 11.16 9.23 BUN 27.2 H 34.9 H Creatinine 1.82 H 2.31 H Estimated GFR (MDRD) 35.00 27.00 BUN/Creatinine Ratio 14.94 15.10 Glucose 141.0 H D 220.3 H Calcium 8.61 8.40 Total Bilirubin 0.46 0.47 AST 55.5 H 75.8 H ALT 33.9 38.0 H Alkaline Phosphatase 128.1 H 118.5 Troponin I < 0.012 NT-Pro-B Natriuret Pep 30 Total Protein 7.70 7.55 Albumin 4.11 4.28 Globulin 3.59 3.27 Albumin/Globulin Ratio 1.14 1.30 TSH 117.000 H Thyroxine (T4) 2.1 L Free T3 pg/mL 1.0 L HCG, Quant < 2.390 SARS CoV-2 RNA Rapid MARY Negative Additional Comments Additional Comments: I have independently reviewed and interpreted the labs/EKGs/imaging ordered during this hospital stay. I have reviewed outside records that are available in our EMR that pertain to medical stay including imaging/notes/labs from previous visits. Active Medications Active Medications: Medications Generic Name Dose Route Start Last Admin Trade Name Freq PRN Reason Stop Dose Admin Acetaminophen 650 mg 04/28/24 13:12 Acetaminophen 325 Mg Tablet PO Q4H PRN Mild Pain Albuterol Sulfate 2 puff 04/28/24 15:30 Albuterol Sulfate 8 Gm Inhaler IH Q4H PRN BRONCHOSPASM Albuterol/Ipratropium 3 ml 04/28/24 15:38 04/28/24 15:51 Ipratropium/Albuterol Vial.Neb NEB 3 ml RTQ6H PRN Administration Wheezing Atorvastatin Calcium 20 mg 04/29/24 09:00 04/29/24 08:30 Atorvastatin Calcium 20 Mg Tablet PO 20 mg DAILY DANK Administration Budesonide/Formoterol Fumarate 2 puff 04/28/24 21:00 04/29/24 08:23 Budesonide/Formoterol Fumarate 160/4.5 Mcg Inhaler IH 2 puff BID DANK Administration Cephalexin 500 mg 04/28/24 14:30 04/29/24 08:29 Cephalexin 500 Mg Capsule PO 05/01/24 14:29 500 mg QID DANK Administration Sodium Chloride 1,000 mls @ 100 mls/hr 04/28/24 13:30 04/29/24 02:50 Sodium Chloride IV 100 mls/hr .Q10H DANK Administration Doxycycline Hyclate 100 mg/ 100 mls @ 50 mls/hr 04/28/24 21:00 04/29/24 08:24 Sodium Chloride IV 05/01/24 20:59 50 mls/hr Q12HR DANK Administration Insulin Glargine 50 unit 04/29/24 09:00 04/29/24 08:32 Insulin Glargine,Hum.Rec.Anlog 100 Units/Ml SUBCUT 50 unit QAM DANK Administration Insulin Human Regular 0 unit 04/28/24 14:13 Insulin Regular, Human 100 Unit/Ml (10ml) Vial SUBCUT PRN PRN Hyperglycemia Protocol Levothyroxine Sodium 25 mcg 04/29/24 06:00 04/29/24 05:24 Levothyroxine Sodium 25 Mcg Tablet PO 25 mcg QDAC2 DANK Administration Levothyroxine Sodium 300 mcg 04/29/24 06:00 07/30/24 05:24 Levothyroxine Sodium 100 Mcg Tablet PO 300 mcg QDAC2 DANK Administration Loratadine 10 mg 04/29/24 09:00 04/29/24 08:29 Loratadine 10 Mg Tablet PO 10 mg DAILY DANK Administration Losartan Potassium 100 mg 04/29/24 09:00 04/29/24 08:29 Losartan Potassium 100 Mg Tablet PO 100 mg DAILY DANK Administration Pantoprazole Sodium 40 mg 04/29/24 06:00 04/29/24 05:24 Pantoprazole Sodium 40 Mg Tablet.Dr PO 40 mg QDAC2 DANK Administration Pregabalin 225 mg 04/28/24 21:00 04/29/24 08:31 Pregabalin 75 Mg Capsule PO 225 mg BID DANK Administration Sodium Chloride 1 syr 04/28/24 10:54 0.9% Sodium Chloride 10 Ml Disp.Syrin IVF PRN PRN To flush IV Tizanidine HCl 4 mg 04/28/24 15:01 Tizanidine Hcl 4 Mg Tablet PO Q8H PRN Spasms Tramadol HCl 50 mg 04/28/24 15:01 Tramadol Hcl 50 Mg Tablet PO TID PRN Pain Plan Plan: 1. RUDI - Improving, down to 1.8 today, baseline creatinine 1-1.1; NS@100mL/hr, avoid nephrotoxins/hypotension 2. Cellulitis - Improving, mild, treating with doxycycline and keflex, no open wounds noted to culture 3. Hypothyroidism - uncontrolled, T3 & T4 pending, TSH>100, hasn't been taking prescribed home dose, restart 325 mcg as previously prescribed 4. Acute Transaminitis - Improving, like due to #2, trend and monitor 5. Diabetes Mellitus, Type 2 - chronic, accuchecks qid with ssi, hold oral agents, ADA diet 6. COPD - chronic, not in exacerbation, continue home medications 7. Sleep apnea - needs study upon discharge to confirm diagnosis, dropping down to 80s during sleep DVT Prophylaxis: Ambulation Review Statement Review Statement: I have personally discussed and reviewed the patient's visit/currently labs/imaging/decision making with Dr. Olson, my supervising attending. Greater that 50 minutes spent with patient, 50% of the time spent with this patient was devoted to counseling and coordination of care.
[2024-04-29] MEDS: HUMULIN R (10ML) SUBCUT PRN (11:32)
[2024-04-29] MEDS: ZANAFLEX PO PRN (13:33)
[2024-04-30 05:52] VITALS: BP 159/85
[2024-04-30 05:56] LABS: BASOPHILS % (AUTO) 0.2 % (0.0-3.0); EOSINOPHILS # (AUTO) 0.1 K/ul (0.0-0.7); EOSINOPHILS % (AUTO) 0.7 % (0.0-7.0); HEMATOCRIT 43.9 % (37.0-47.0); HEMOGLOBIN 13.6 g/dl (12.0-16.0); IMMATURE GRANULOCYTE % (AUTO) 0.4 % (0.0-5.0); LYMPHOCYTES # (AUTO) 2.7 K/uL (0.60-3.4); LYMPHOCYTES % (AUTO) 26.1 (10.0-50.0); MEAN CORPUSCULAR HEMOGLOBIN 28.9 pg (27.0-31.0); MEAN CORPUSCULAR VOLUME 93.2 fl (81.0-99.0); MONOCYTES # (AUTO) 1.1 K/uL (0.4-2.0); MONOCYTES % (AUTO) 10.5 (0-10); NEUTROPHILS # (AUTO) 6.3 K/ul (2.0-6.9); NEUTROPHILS % (AUTO) 62.1 % (42.2-75.2); PLATELET COUNT 205 10^3/uL (140-440); RDW COEFFICIENT OF VARIATION 16.8 % (11.6-14.8); RED BLOOD COUNT 4.71 10^6/ul (4.20-5.40); WHITE BLOOD COUNT 10.18 K/ul (4.6-10.2)
[2024-04-30 06:11] LABS: ALANINE AMINOTRANSFERASE 32.9 U/L (0-35); ALBUMIN 4.23 g/dL (3.5-5.0); ALKALINE PHOSPHATASE 126.3 U/L (38-126); ASPARTATE AMINO TRANSFERASE 59.3 U/L (14-36); BILIRUBIN,TOTAL 0.57 mg/dL (0.2-1.3); BLOOD UREA NITROGEN 19.3 mg/dL (7-17); CARBON DIOXIDE 29.6 mmol/L (22-30.0); CHLORIDE 112.2 mmol/L (98-107); CREATININE 1.36 mg/dL (0.60-1.30); GLUCOSE 80.2 mg/dL (74-106); POTASSIUM 4.54 mmol/L (3.5-5.1); SODIUM 145.5 mmol/L (134.5-145); TOTAL PROTEIN 7.73 g/dL (6.3-8.2)
--- NOTE | 2024-04-30 09:52 | DCSUM ---
Admission Date Admission Date: 04/28/24 Discharge Date Discharge Date: 04/30/24 Admission Diagnosis Admission Diagnosis: 1. RUDI 2. Cellulitis 3. Hypothyroidism 4. Acute Transaminitis 5. Diabetes Mellitus, Type 2 6. COPD Discharge Diagnosis Discharge Diagnosis: 1. RUDI - Improving, creatinine near baseline 2. Cellulitis - Improving, Doxy and Keflex RX 3. Hypothyroidism - Chronic, Uncontrolled due to awaiting refill on 300 mcg tab; sent rx 4. Acute Transaminitis - Improving 5. Diabetes Mellitus, Type 2 - Chronic, stable 6. COPD - Chronic, stable Hospital Provider Hospital Provider: JUAN CANTRELL, [facility] Primary Care Physician Primary Care Physician: RENALDO TREJO MD Summary of History and Physical Summary of History and Physical: 53 yo female presented to the ER with complaints of redness and swelling to BLE, L>R. Reports it started approx. 1 week ago and has worsened. Denies any injury to the feet. Denies any open areas that she is aware of. Patient is type 2 diabetic. X-ray showed soft tissue swelling w/o osteomyelitis. No fever or WBC count. Patient was also found to have elevated creatinine at 2.3, baseline is 1- 1.1. TSH was checked and found to be >100. Patient states she has been out of her 300 mcg synthroid tablets and only taking her 25 mcg until he refills are approved by PCP. Patient admitted to med/surg observation. Hospital Course Subjective: During stay, patient was treated for RUDI with NS@100mL/hr. Creatinine improved to 1.36 today. Also treated for cellulitis to BLE, L>R with doxycycline and keflex. Redness nearly resolved. Swelling resolved. Incidental finding of TSH >100. Patient had not been taking her 300 mcg synthroid due to awaiting refill. Patient was sent 1 month supply in to pharmacy until follow-up with PCP for further prescription. Liver enzymes were mildly elevated during stay, likely secondary to cellulitis. While sleeping, patient was found to have low O2 sat in upper 80s-low 90s at times. Discussed potential need for sleep study and discussed to talk with PCP about ordering. No changes made to home medications. Appearance: Pleasant, No Apparent Distress and Alert HEENT: MMM and Supple CVS: No Murmur Abdomen: Soft and Non-Tender Respiratory: No Dyspnea Extremities: No Edema Vital Signs: Most Recent Vital Signs Temperature 97.9 F 04/30/24 05:49 Temperature Source Temporal Artery Scan 04/30/24 05:49 Temperature Source Infrared 04/28/24 10:29 Pulse Rate 66 04/30/24 05:49 Respiratory Rate 20 04/30/24 05:49 Blood Pressure 159/85 H 04/30/24 05:49 Blood Pressure Mean 109 04/30/24 05:49 Blood Pressure Left Arm 133/60 04/28/24 13:33 Blood Pressure Location Left Arm 04/30/24 05:49 Blood Pressure Position Sitting 04/30/24 05:49 O2 Sat by Pulse Oximetry 96 04/30/24 05:49 Oxygen Delivery Method Room Air 04/30/24 09:00 Oxygen Flow Rate 1 04/29/24 10:00 Height 5 ft 11 in 04/28/24 13:33 Weight 234 lb 5 oz 04/28/24 13:33 Telemetry Heart Rate 72 11/07/22 13:33 Imaging: EXAM: RADIOGRAPHS, LEFT FOOT HISTORY: Left foot pain, redness. Evaluate for osteomyelitis. COMPARISON: 02/15/2023. TECHNIQUE: Three views. FINDINGS: Bone mineralization normal. Old fifth metatarsal shaft fracture noted. Stable deformity of the fourth metatarsal neck also likely due to prior trauma. Old lateral malleolar avulsion fracture again noted. There is no acute fracture or dislocation. There is no periosteal reaction or osseous destruction. There is soft tissue swelling over the fluid, greater dorsally. Stable 0.3 cm linear radiopaque foreign object medial to the first metatarsal head. IMPRESSION: 1. Soft tissue swelling without radiographic evidence for osteomyelitis. 2. Small foreign object near the first metatarsal head. 3. Stable old fractures. Lab Results Last 24 Hours: 04/30/24 05:26 WBC 10.18 RBC 4.71 Hgb 13.6 Hct 43.9 D MCV 93.2 MCH 28.9 MCHC 31.0 L RDW Coeff of Thee 16.8 H Plt Count 205 Immature Gran % (Auto) 0.4 Neut % (Auto) 62.1 Lymph % (Auto) 26.1 [place] % (Auto) 10.5 H Eos % (Auto) 0.7 Baso % (Auto) 0.2 Neut # (Auto) 6.3 Lymph # (Auto) 2.7 [place] # (Auto) 1.1 Eos # (Auto) 0.1 Baso # (Auto) 0.0 Immature Gran # (Auto) 0.0 Sodium 145.5 H Potassium 4.54 Chloride 112.2 H Carbon Dioxide 29.6 Anion Gap 8.24 BUN 19.3 H Creatinine 1.36 H Estimated GFR (MDRD) 49.00 BUN/Creatinine Ratio 14.19 Glucose 80.2 Calcium 9.00 Total Bilirubin 0.57 AST 59.3 H ALT 32.9 Alkaline Phosphatase 126.3 H Total Protein 7.73 Albumin 4.23 Globulin 3.50 Albumin/Globulin Ratio 1.20 Discharge Instructions Discharge Planning: Discharge Planning > 40 minutes If patient is discharged with left ventricular systolic dysfunction: NA Discharged with a beta jeff? [] If no, why not? [] Discharged with an yomaira/arb? [] If no, why not? [] Diagnosis: Cellulitis, RUDI Diet: Diabetic Activity: as tolerated Follow-up with PCP next week. Medications: Keflex QID until finished, first dose given this am; doxycycline twice a day until finished, first dose given this am Sent in refill for 300 mcg levothyroxine Discuss with PCP need for sleep study Discharge Medications: Medications at Discharge (Home Meds & RX) levothyroxine 300 mcg tablet See Rx Instructions .Route .COMPLEX #30 tabs 07/23/23 blood-glucose meter (OneTouch Ultra2 Meter) #1 ea 07/30/23 lancets 33 gauge (OneTouch Delica Plus Lancet) #100 ea 10/02/23 losartan 100 mg tablet See Rx Instructions .Route .COMPLEX #30 tabs 10/22/23 blood sugar diagnostic (OneTouch Ultra Test strips) #100 ea 10/23/23 fluticasone propionate 50 mcg/actuation nasal spray,suspension See Rx Instructions .Route .COMPLEX #16 grams 12/10/23 metformin 1,000 mg tablet See Rx Instructions .Route .COMPLEX #60 tabs 12/24/23 glipizide 10 mg tablet See Rx Instructions .Route .COMPLEX #180 tabs 01/21/24 albuterol sulfate 90 mcg/actuation aerosol inhaler See Rx Instructions .Route .COMPLEX #6.7 grams 01/29/24 atorvastatin 20 mg tablet (Lipitor) 20 mg PO QDAY #30 tabs 02/06/24 insulin glargine 100 unit/mL (3 mL) subcutaneous pen (Lantus Solostar U-100 Insulin) 50 unit (0.5 mL) subcut QAM #15 mL 02/06/24 semaglutide 7 mg tablet (Rybelsus) 7 mg PO QDAY #30 tabs 02/28/24 triamterene 37.5 mg-hydrochlorothiazide 25 mg capsule 1 cap PO QDAY PRN swelling #30 caps 03/17/24 budesonide-formoterol HFA 160 mcg-4.5 mcg/actuation aerosol inhaler (Symbicort) See Rx Instructions .Route .COMPLEX #10.2 ea 04/14/24 levothyroxine 25 mcg tablet See Rx Instructions .Route .COMPLEX #30 tabs 04/14/24 loratadine 10 mg tablet See Rx Instructions .Route .COMPLEX #30 tabs 04/14/24 nabumetone 500 mg tablet See Rx Instructions .Route .COMPLEX #60 tabs 04/14/24 pantoprazole 40 mg tablet,delayed release See Rx Instructions .Route .COMPLEX #30 tabs 04/14/24 pregabalin 225 mg capsule (Lyrica) 225 mg PO BID 30 days #60 caps 04/14/24 tizanidine 4 mg tablet (Zanaflex) 4 mg PO Q8H PRN muscle spasticity 30 days #90 tabs 04/14/24 tramadol 50 mg tablet 50 mg PO TID PRN pain #90 tabs 04/14/24 Discharge Plan Discharge Discharge Orders: Discharge Patient (ONCE); Ordered 04/30/24 Ordered By: JACQUES MABRY Activity Restrictions/Additional Instructions: Diagnosis: Cellulitis, RUDI Diet: Diabetic Activity: as tolerated Follow-up with PCP next week. Medications: Keflex QID until finished, first dose given this am; doxycycline twice a day until finished, first dose given this am Sent in refill for 300 mcg levothyroxine Instructions: Acute Kidney Injury (GEN), Cellulitis (GEN) Patient Disposition: HOME SELF-CARE Prescriptions: New cephalexin 500 mg Capsule 500 mg PO QID Qty: 19 0RF doxycycline hyclate 100 mg capsule 100 mg PO BID Qty: 9 0RF Continued (DME) blood-glucose meter [ams AGTouch Ultra2 Meter] Misc See Rx Instructions .ROUTE .COMPLEX Qty: 1 0RF Dose Instruction: USE DIRECTED Rx Instructions: USE DIRECTED (DME) lancets [OneTouch Delica Plus Lancet] 33 gauge [facility] See Rx Instructions .ROUTE .COMPLEX Qty: 100 4RF Dose Instruction: USE DIRECTED THREE TIMES DAILY Rx Instructions: USE DIRECTED THREE TIMES DAILY (DME) OneTouch Ultra Test Strip See Rx Instructions .ROUTE .COMPLEX Qty: 100 3RF Dose Instruction: TEXT UP TO THREE TIMES DAILY Rx Instructions: TEXT UP TO THREE TIMES DAILY fluticasone propionate 50 mcg/actuation spray,suspension See Rx Instructions .ROUTE .COMPLEX Qty: 16 3RF Dose Instruction: USE TWO SPRAY IN NOSTRILS DAILY DIRECTED Rx Instructions: USE TWO SPRAY IN NOSTRILS DAILY DIRECTED metformin 1,000 mg tablet See Rx Instructions .ROUTE .COMPLEX Qty: 60 3RF Dose Instruction: TAKE ONE TABLET TWICE DAILY Rx Instructions: TAKE ONE TABLET TWICE DAILY albuterol sulfate 90 mcg/actuation HFA aerosol inhaler See Rx Instructions .ROUTE .COMPLEX Qty: 6.7 3RF Dose Instruction: INHALE TWO PUFFS EVERY FOUR HOURS NEEDED FOR BRONCHOSPASM Rx Instructions: INHALE TWO PUFFS EVERY FOUR HOURS NEEDED FOR BRONCHOSPASM insulin glargine [Lantus Solostar U-100 Insulin] 100 unit/mL (3 mL) insulin pen 50 unit subcut QAM Qty: 15 5RF atorvastatin [Lipitor] 20 mg tablet 20 mg PO QDAY Qty: 30 2RF Rybelsus 7 mg tablet 7 mg PO QDAY Qty: 30 2RF budesonide-formoterol [Symbicort] 160-4.5 mcg/actuation HFA aerosol inhaler See Rx Instructions .ROUTE .COMPLEX Qty: 10.2 1RF Dose Instruction: USE TWO PUFF INHALED TWICE A DAY RINSE MOUTH AFTER USE Rx Instructions: USE TWO PUFF INHALED TWICE A DAY RINSE MOUTH AFTER USE tramadol 50 mg tablet 50 mg PO TID PRN (Reason: pain) Qty: 90 0RF levothyroxine 25 mcg tablet See Rx Instructions .ROUTE .COMPLEX Qty: 30 2RF Dose Instruction: TAKE ONE TABLET DAILY Rx Instructions: TAKE ONE TABLET DAILY loratadine 10 mg tablet See Rx Instructions .ROUTE .COMPLEX Qty: 30 0RF Dose Instruction: TAKE ONE TABLET DAILY Rx Instructions: TAKE ONE TABLET DAILY nabumetone 500 mg tablet See Rx Instructions .ROUTE .COMPLEX Qty: 60 0RF Dose Instruction: TAKE ONE TABLET TWICE A DAY Rx Instructions: TAKE ONE TABLET TWICE A DAY levothyroxine 300 mcg tablet See Rx Instructions .ROUTE .COMPLEX Qty: 30 3RF Dose Instruction: TAKE ONE TABLET DAILY Rx Instructions: TAKE ONE TABLET DAILY losartan 100 mg tablet See Rx Instructions .ROUTE .COMPLEX Qty: 30 3RF Dose Instruction: TAKE ONE TABLET DAILY Rx Instructions: TAKE ONE TABLET DAILY glipizide 10 mg tablet See Rx Instructions .ROUTE .COMPLEX Qty: 180 3RF Dose Instruction: TAKE ONE TABLET TWICE DAILY BEFORE MEALS Rx Instructions: TAKE ONE TABLET TWICE DAILY BEFORE MEALS triamterene-hydrochlorothiazid 37.5-25 mg capsule 1 cap PO QDAY PRN (Reason: swelling) Qty: 30 2RF tizanidine [Zanaflex] 4 mg tablet 4 mg PO Q8H PRN (Reason: muscle spasticity) 30 Days Qty: 90 1RF pantoprazole 40 mg tablet,delayed release (DR/EC) See Rx Instructions .ROUTE .COMPLEX Qty: 30 2RF Dose Instruction: TAKE ONE TABLET EVERY MORNING Rx Instructions: TAKE ONE TABLET EVERY MORNING pregabalin [Lyrica] 225 mg capsule 225 mg PO BID 30 Days Qty: 60 0RF Did you review [place] [employer] for ALL controlled substances?: No Discussed opioids are addictive and Narcan is available by prescription or from pharmacy.: No Condition: Fair Referrals: RENALDO TREJO MD [Primary Care Provider] - 05/06/24 2:40 pm Stand Alone Forms: Work/School Release Inpatient
[2024-04-30] MEDS: DOXYCYCLINE HYCLATE PO ONE (10:01)
[2024-04-30 12:59] VITALS: PULSE 68; RESP 17; TEMP 98.1
== END 2024-04-30 14:30 | disposition home or self-care (01) ==
LOC: ED 10:26 → MEDSURG B 10:26
PROVIDERS: ADMIT Hospitalist; ATTEND Nurse Practitioner Family
DX: E11.9 Type 2 diabetes mellitus without complications; Z20.822 Contact with and (suspected) exposure to COVID-19; Z51.81 Encounter for therapeutic drug level monitoring; I10 Essential (primary) hypertension; J44.9 Chronic obstructive pulmonary disease, unspecified; N17.9 Acute kidney failure, unspecified; L03.116 Cellulitis of left lower limb; Z79.899 Other long term (current) drug therapy; F17.210 Nicotine dependence, cigarettes, uncomplicated; G47.30 Sleep apnea, unspecified; R06.2 Wheezing; Z79.84 Long term (current) use of oral hypoglycemic drugs; R60.0 Localized edema; Z79.4 Long term (current) use of insulin; E03.9 Hypothyroidism, unspecified; R74.01 Elevation of levels of liver transaminase levels